=== PATIENT | female | born 1940 | race Caucasian/White ===

== ENCOUNTER 2016-10-03 05:57 | Inpatient (IN) | payer MEDICARE ==
[2016-10-03] MEDS ORDERED: ceFAZolin SODIUM 1 GM VIAL IV PRN (06:00)
[2016-10-03] MEDS ORDERED: ROPIVACAINE HCL/PF 100 MG, EPINEPHrine 0.2 MG, KETOROLAC TROMETHAMINE 30 MG in NORMAL S... IJ PRN (06:00)
[2016-10-03] MEDS ORDERED: TRANEXAMIC ACID 1,000 MG in NORMAL SALINE 100 ML IV PRN (06:00)
[2016-10-03] MEDS ORDERED: RINGERS SOLUTION,LACTATED 1,000 ML IV PRN (06:00)
[2016-10-03] MEDS ORDERED: MORPHINE SULFATE 15 MG TABLET.SA PO PRN (06:00)
--- OUTSIDE RECORDS SUMMARY | 2016-10-03 06:01 | XMS REPORT | Continuity of Care Document ---
:1940 Author Organization [employer] [place] [address] Care Team Providers Name Role Phone Unavailable Primary Care Provider Unavailable Source Comments This disclosure is being made pursuant to the [facility] program and maynot contain all information available regarding this patient.[employer] Active Allergies and Adverse Reactions Not on File Current Medications Be aware that medications may not be up to date as of this document. Alwaysverify current medications with the patient. Not on file Active Problems Not on file Social History Tobacco Use Types Packs/Day Years Used Date Never Assessed Plan of Care Health Maintenance Due Date Last Done Comments Retired-Pertussis Vaccine Adult 09/05/1958 Retired-Tetanus Vaccine Adult 09/05/1958 Colonoscopy 09/05/1989 Well Adult Visit 09/05/1989 Zoster Vaccine 60+ 1999 Bone Density 09/05/2004 Retired-Pneumococcal 23 Vaccine-65+ yo 09/05/2004 Retired-INFLUENZA VACCINE 12/28/2014 Results from Last 3 Months Not on file
--- OUTSIDE RECORDS SUMMARY | 2016-10-03 06:02 | XMS REPORT | Continuity of Care Document ---
:1940 Author Organization [facility] ([facility]) Address [address] [place] [address] Phone [phone] Care Team Providers Name Role Phone Michael Menjivar Primary Care Provider [phone] Source Comments This disclosure is being made pursuant to the Care Everywhere program, applicable federal and state laws, and may not contain all informaitonavailable regarding this patient.[facility] ([facility]) Active Allergies and Adverse Reactions No Known Allergies Current Medications Prescription Sig. Disp. Refills Start Date End Date Status amLODIPine 2.5 mg tablet 2.5 mg daily. 07/29/2014 Active citalopram 10 mg tablet 1 tablet daily. 07/29/2014 Active digoxin 250 mcg tablet 0.25 mg daily. 07/29/2014 Active furosemide 40 mg tablet 40 mg daily. 07/29/2014 Active gemfibrozil 600 mg tablet 600 mg 2 times 12/27/2010 Active daily. levothyroxine 150 mcg 150 mcg daily. 12/26/2011 Active tablet losartan 100 mg tablet 100 mg daily. 07/29/2014 Active melatonin 5 mg tablet 10 mg at bedtime. 07/29/2014 Active metoPROLol succinate 100 150 mg daily Take 07/29/2014 Active mg XL tablet one and a half tablet a day. omeprazole 40 mg enteric 40 mg 2 times 07/29/2014 Active coated capsule daily. oxyCODONE-acetaminophen as needed. 01/07/2013 Active 10-325 mg per tablet polyethylene glycol 3350 daily. 05/23/2011 Active (MIRALAX) 17 gram/dose powder warfarin 5 mg tablet 5 mg daily. 05/12/2014 Active alendronate 70 mg tablet 70 mg every week. 4 04/19/2015 Active levothyroxine 137 mcg 137 mcg daily. 05/17/2015 Active tablet pramipexole 0.125 mg as needed. 3 03/30/2015 Active tablet warfarin 1 mg tablet daily. 2 05/19/2015 Active Active Problems Problem Noted Date History of thyroid cancer 06/11/2015 HTN (hypertension) 06/10/2015 Low back pain 06/10/2015 Anxiety and depression 06/10/2015 Hypothyroid 06/10/2015 Constipation 06/10/2015 CAD (coronary artery disease) 06/10/2015 A-fib 06/10/2015 Social History Tobacco Use Types Packs/Day Years Used Date Never Smoker Smokeless Tobacco: Never Used Tobacco Cessation:Counseling Given: Yes Comments: Alcohol Use Drinks/Week oz/Week Comments No Last Filed Vital Signs Vital Sign Reading Time Taken Blood Pressure 148/81 06/10/2015 12:12 PM [employer] Pulse - - Temperature 36.5 C (97.7 F) 06/10/2015 12:12 PM [employer] Respiratory Rate - - Height 1.524 m (5') 06/10/2015 12:12 PM [employer] Weight 85.9 kg (189 lb 6 oz) 06/10/2015 12:12 PM [employer] Body Mass Index 36.98 06/10/2015 12:12 PM [employer] Oxygen Saturation - - Plan of Care Health Maintenance Due Date Last Done Comments Hepatitis B Vaccine (1 of 3 - Primary Series) 1940 Tdap Vaccine 09/05/1950 Lipid Disorder Screening 09/05/1957 Td Vaccine 09/05/1957 Mammogram 1979 Colonoscopy 09/05/1989 Zoster Vaccine 1999 Osteoporosis Screening (DXA Bone Density) 09/05/2004 Pneumococcal Vaccine (1 of 2 - PCV13) 09/05/2004 Influenza Vaccine: Seasonal (#1) 11/28/2015 Results from Last 3 Months Not on file
[2016-10-03 07:43] LABS: Prothrombin Time (Patient) 11.4 Seconds (9.4-11.4)
[2016-10-03 07:45] LABS: INR 1.1 INR (0.90-1.10)
[2016-10-03] MEDS ORDERED: RINGERS SOLUTION,LACTATED 1,000 ML IV ONE ×2 (07:45→09:10)
[2016-10-03] MEDS ORDERED: MAG HYDROX/ALUMINUM HYD/SIMETH 30 ML UDC PO PRN (10:03)
[2016-10-03] MEDS ORDERED: ACETAMINOPHEN 500 MG TABLET PO PRN (10:03)
[2016-10-03] MEDS ORDERED: ONDANSETRON HCL/PF 2 MG/ML VIAL IV PRN (10:03)
[2016-10-03] MEDS ORDERED: diphenhydrAMINE HCL 50 MG/ML VIAL IV PRN (10:03)
[2016-10-03] MEDS ORDERED: HYDROmorphone HCL 1 MG/ML DISP.SYRIN IV PRN (10:03)
[2016-10-03] MEDS ORDERED: PROMETHAZINE HCL 5 MG in DEXTROSE 5 % IN WATER 50 ML IV PRN ×2 (10:03)
[2016-10-03] MEDS ORDERED: MAGNESIUM HYDROXIDE 30 ML UDC PO PRN (10:03)
[2016-10-03] MEDS ORDERED: ZOLPIDEM TARTRATE 5 MG TABLET PO PRN (10:03)
[2016-10-03] MEDS ORDERED: LORazepam 1 MG TABLET PO PRN (10:05)
[2016-10-03] MEDS ORDERED: POLYETHYLENE GLYCOL 3350 119 GM BTL PO PRN (10:05)
--- NOTE | 2016-10-03 10:09 | OR ---
Operative Report - Dictated Report Narrative: Date: 10/03/2016 Preoperative diagnosis: Left Knee degenerative joint disease. Postoperative diagnosis: Left Knee degenerative joint disease. Procedure: Left Total knee arthroplasty. Surgeon: Haroon Henriquez M.D. Installation Coordinator: Gilson Davey PA-C, Wilfredo Carrizales PA-C Anesthesia: General With regional block and local periarticular joint injection. Complications: None Specimens: Bone for disposal. Estimated blood loss: Minimal. Tourniquet time: 85 Minutes at 325 millimeters of mercury. Retained implants: Depuy Attune size 6 narrow left lugged cemented posterior stabilized femoral component. Size 5 fixed-bearing cemented tibial platform. 6 by 5 millimeter posterior stabilized cross-linked tibial insert. 35 millimeter medialized patella button. Indications: Mrs. Renteria is a 76-year-old female who has had long-standing left knee pain. This patient was followed in my clinic for period of time with significant complaints of left knee pain consistent with arthritic changes. They had failed conservative measures including, but not limited to, activity modification, passage of time, medications, and other conservative measures. Patient wished to proceed with surgical treatment. The risks, benefits, and alternatives were discussed in clinic. The risks of , blood clots, bleeding, infection, nerve/tendon blood vessel/ injury, malposition of components, intraoperative fracture, postoperative limited range of motion, persistent pain, failure of components, and need for additional procedures. Patient wished to proceed consent was obtained after answering all questions. Procedure: After marking the correct extremity on the floor, the patient was taken to the operating room. A timeout was performed. IV antibiotics consisting of Ancef were administered prior to the procedure. A regional followed by general anesthetic was induced by anesthesia on the operative table with all bony prominences well-padded. Calzada catheter was placed, and a bump was placed under the operative side buttock. SCDs and ARA hose were utilized on the nonoperative leg. A well-padded tourniquet was applied to the operative thigh. The operative leg was then pre-scrubbed with alcohol prepped, and draped in a standard sterile fashion. After exsanguinating the extremity with an Esmarch bandage, the tourniquet was inflated. After marking out the anterior knee for standard incision centered over the patella, the skin was incised and dissected down to the joint retinaculum. The joint retinaculum was marked out as well as the horizontal axis of the patella, and a standard medial parapatellar arthrotomy was then made. The most proximal aspect of the quadriceps tendon and the patella tendon insertion were protected from release. A partial synovectomy was performed as well as a resection of the infrapatellar fat pad. The distal femoral fat pad proximal to the trochlea was also resected using cautery. The soft tissues were elevated off the medial aspect of the proximal tibia using a Gentile elevator ensuring that we did not transect the medial collateral ligament. Upon initial evaluation range of motion was approximately 0 degrees to 120 degrees of flexion. There were signs of advanced arthrosis in the medial, lateral, and patellofemoral joint spaces. There were large marginal osteophytes which were removed with a rongeur. The knee was hyperflexed and the patella was tucked laterally. Protecting the surrounding soft tissues with Homans, an entry drill was placed down the femoral canal using Whitesides line for guidance into the entry point. The intramedullary femoral alignment joselyn was utilized in order to cut the distal femur in 5 degrees of valgus resecting 10 millimeters of bone. Next the distal femur was sized to a size 6. A posterior referencing guide was utilized to place the distal femoral cutting block in 3 degrees of external rotation. This was pinned into place. The rotation was confirmed both visually and based on anatomic landmarks. The 4 in 1 cutting jig of the appropriate size was utilized in order to make all bony cuts. The angle wing was used to ensure no notching. Retractors were utilized in order to protect surrounding soft tissues. This cut did not result in any excessive notching. We then cut the box centered over the distal femur. This allowed for resection of the anterior and posterior cruciate ligaments. I then turned my attention to the preparation of the tibia. Using an extra medullary tibial alignment joselyn, 6 millimeters of bone was resected off the medial articular surface. This was made perpendicular to the mechanical axis of the joint with the alignment joselyn centered over the ankle mortise. The alignment joselyn was checked and was noted to be parallel to the mechanical axis, centered over the medial one third of the tibial tubercle, paralleling the anterior surface of the tibia. We then turned our attention to the remaining meniscus and soft tissues. These were removed while protecting the surrounding ligaments and soft tissues. The marginal osteophytes off the anterior, posterior, medial, lateral aspects of the femur and tibia were removed. The tibia was sized out to a size 5. Next the tibia was drilled and punched in an externally rotated position. Next the trial femur and a series of tibial inserts were utilized in order to allow for full extension and maximal flexion. It was found that a 5 millimeter insert gave the best range of motion and stability at multiple flexion points as well as at full extension there was less than 2 mm of gapping both medially and laterally. There is minimal anterior translation with the knee at 90 degrees of flexion and no signs of being able to dislocate the knee. The patella was then prepared. The initial thickness was 21 millimeters. This was reamed down to 11 millimeters parallel to the anterior surface of the patella. It was sized out to a size 35 medialized patella button. This was then drilled and trialed. Without any medial restraint the patella tracked appropriately and did not sublux or dislocate. At this point, it was felt these were the appropriate sized implants, and all trials were removed. The standard periarticular joint injection consisting of ropivacaine, Toradol, and epinephrine were injected into the periarticular joint tissues. The bony surfaces were thoroughly irrigated with a pulsatile- suction saline irrigation device. A bone plug from the prior resected anterior chamfer cut was placed into the drill hole at the distal femur. The bony surfaces were then dried in preparation for placement of the implants. The cement was vacuum mixed per the tile layer helper's instructions. The cement was placed on the dry bony surfaces and posterior aspect of the implants. The implants were impacted into place, removing all extruded cement. At this point anesthesia administered tranexamic acid per protocol intravenously. The knee was placed in extension with axial loading with the trial insert while the cement cured. Once the cement cured, all remaining extruded cement was removed. The knee was placed through a range of motion with the trial insert to ensure appropriate range of motion and stability. Final range of motion was approximately 0 to 120 degrees. The knee was again thoroughly irrigated with pulsatile saline lavage. The final polyethylene insert was then impacted into place ensuring no retained soft tissues. The remaining periarticular joint injection was injected. A medium Hemovac drain was placed exiting superior laterally. The knee was then placed over a triangle and the arthrotomy was closed with interrupted #1 Vicryl after thoroughly irrigating the joint. The deep and subcutaneous tissues were closed with interrupted oh and 3-0 Vicryl respectively. Skin was closed with a running subcutaneous 3-0 Monocryl and Prineo Dermabond dressing. 4 x 4's, ABD, Sof-Rol, and a full leg Low wrap were applied. All sponge, needle, blade, and instrument counts were correct prior to closing the wounds. Postoperative condition: The patient was awoken and transferred to the postanesthesia care unit in stable condition. Plan is to be admitted to the inpatient medical/surgical floor postoperatively for 24 hours of IV antibiotics , physical therapy, occupational therapy, and medical comanagement. Patient will be weightbearing as tolerated with range of motion as tolerated. DVT prophylaxis will be with SCDs, ARA hose, and pharmacological anticoagulation. Anticipated hospital stay is approximately 2-4 days.
[2016-10-03] MEDS: DEXTROSE 5%-LACTATED RINGERS 1,000 ML IV PRN ×2 (11:08→19:46)
[2016-10-03] MEDS: oxyCODONE HCL/ACETAMINOPHEN 1 TAB TABLET PO PRN ×3 (11:13→21:42)
[2016-10-03] MEDS: KETOROLAC TROMETHAMINE 15 MG/ML VIAL IV SCH ×2 (11:20→17:44)
[2016-10-03] MEDS: ceFAZolin SODIUM 1 GM in DEXTROSE 5 % IN WATER 100 ML IV SCH ×4 (13:35→20:18)
[2016-10-03] MEDS: GABAPENTIN 300 MG CAPSULE PO SCH ×2 (13:36→16:45)
[2016-10-03] MEDS: WARFARIN SODIUM 5 MG TABLET PO SCH (16:45)
[2016-10-03] MEDS: MORPHINE SULFATE 15 MG TABLET.SA PO SCH (20:17)
[2016-10-03] MEDS: CITALOPRAM HYDROBROMIDE 20 MG TABLET PO SCH (20:19)
[2016-10-03] MEDS: PANTOPRAZOLE SODIUM 40 MG TABLET.EC PO SCH (20:19)
[2016-10-03] MEDS: GEMFIBROZIL 600 MG TABLET PO SCH (20:19)
[2016-10-03] MEDS: CLONIDINE HCL 0.1 MG TABLET PO SCH (20:20)
[2016-10-03] MEDS: SENNOSIDES/DOCUSATE SODIUM 1 TAB TABLET PO SCH (20:20)
[2016-10-04] MEDS: KETOROLAC TROMETHAMINE 15 MG/ML VIAL IV SCH ×4 (00:06→17:06)
[2016-10-04] MEDS: ceFAZolin SODIUM 1 GM in DEXTROSE 5 % IN WATER 100 ML IV SCH ×2 (01:39)
[2016-10-04] MEDS: DEXTROSE 5%-LACTATED RINGERS 1,000 ML IV PRN (05:20)
[2016-10-04 05:44] LABS: Hematocrit 35.7 % (37.0-47.0); Hemoglobin 11.4 gm/dL (12.5-16.0); Mean Cell Volume 94.7 fl (78-100); Mean Corpuscular Hemoglobin 30.2 pg (27-31); Mean Corpuscular Hgb Conc 31.9 g/dl (32-36); Mean Platelet Volume 9.4 fl (6.0-9.5); Platelet Count 185 K/mm3 (150-450); Red Blood Count 3.77 M/mm3 (4.2-5.4); Red Cell Distribution Width 13.3 % (11.5-14.0); White Blood Count 7.5 K/mm3 (4.0-10.5)
[2016-10-04 06:05] LABS: Prothrombin Time (Patient) 11.1 Seconds (9.4-11.4)
[2016-10-04 06:07] LABS: INR 1.07 INR (0.90-1.10)
[2016-10-04 06:08] LABS: Anion Gap 7.5 mmol/L (6.8-13.8); BUN/Creatinine Ratio 12.8 (9.0-21.6); Calcium * 8.5 mg/dL (7.9-10.9); Carbon Dioxide 33.6 mmol/L (24-32.6); Estimated Creat Clear 37.8; Potassium 4.1 mmol/L (3.4-4.6)
[2016-10-04] MEDS: PANTOPRAZOLE SODIUM 40 MG TABLET.EC PO SCH ×2 (06:31→20:04)
[2016-10-04] MEDS: LEVOTHYROXINE SODIUM 150 MCG TABLET PO SCH (06:32)
[2016-10-04] MEDS: oxyCODONE HCL/ACETAMINOPHEN 1 TAB TABLET PO PRN ×2 (06:32→16:06)
--- NOTE | 2016-10-04 08:13 | PN ---
Subjective - Date and Time Seen Date: 10/04/16 Time: 08: Subjective Narrative: Subjective: Reports no concerns. She had some pain last night which improved this morning. Was able to get to the chair with therapy. Pain is well- controlled. Voiding without any complications. Tolerating by mouth intake. Denies any nausea or vomiting. Denies calf pain. Slept well. Physical exam: Alert and oriented to person, place and time Left lower Extremity: Palpable dorsalis pedis pulse. Sensation grossly intact to light touch. Dressings clean and dry. Able to flex and extend ankle and toes. No excessive drainage. Calf and thigh are soft and nontender. Assessment: Postop day 1 status post left total knee arthroplasty. Plan: Continue with physical and occupational therapy weightbearing as tolerated. Continue with anticoagulation. 24 hours postoperative prophylactic antibiotics. Pain control with goal to rely on oral medications. Continue bowel regimen. Will need 6 weeks with walker or assitive device to protect joint while ambulating during the recovery process. Discharge planning. Discontinue drain and Calzada catheter. Repeat labs in a.m. Objective - Vitals Vitals: Last Vital Signs Temp 36.6 C 10/04/16 06:54 Pulse 57 L 10/04/16 06:54 Resp 18 10/04/16 06:54 BP 145/69 10/04/16 06:54 Pulse Ox 98 10/04/16 06:54 - Abnormal Lab Findings Abnormal Lab Findings: Abnormal Lab Results 10/04/16 10/04/16 Range/Units 05:32 05:32 RBC 3.77 L (4.2-5.4) M/mm3 Hgb 11.4 L (12.5-16.0) gm/dL Hct 35.7 L (37.0-47.0) % MCHC 31.9 L (32-36) g/dl Carbon Dioxide 33.6 H (24-32.6) mmol/L Random Glucose 167 H (70-110) mg/dL Cauti Physician Documentation - Urinary Catheter Management Urethral (Calzada) Date of Insertion: 10/03/16 Time of Insertion: Date of Removal: 10/04/16 Time of Removal: 06:26 Assessment/Plan - Problems/Diagnosis (1) Status post total knee replacement, left Problem: Acute (2) Diabetes mellitus Problem: Chronic Qualifiers: Diabetes mellitus type: type 2 (3) Atrial fibrillation Problem: Chronic (4) CAD (coronary artery disease) Problem: Chronic (5) Hypertension Problem: Chronic (6) Hypothyroid Problem: Chronic (7) Hyperlipemia Problem: Chronic (8) GERD (gastroesophageal reflux disease) Problem: Chronic (9) Acute blood loss anemia Problem: Acute
[2016-10-04] MEDS: MULTIVITAMINS 1 CAP CAPSULE PO SCH (08:40)
[2016-10-04] MEDS: CYANOCOBALAMIN 1,000 MCG TABLET PO SCH (08:40)
[2016-10-04] MEDS: DIGOXIN 0.25 MG TABLET PO SCH (08:40)
[2016-10-04] MEDS: amLODIPine BESYLATE 5 MG TABLET PO SCH (08:40)
[2016-10-04] MEDS: GEMFIBROZIL 600 MG TABLET PO SCH ×2 (08:40→20:04)
[2016-10-04] MEDS: METOPROLOL SUCCINATE 100 MG TABLET.SA PO SCH (08:41)
[2016-10-04] MEDS: LOSARTAN POTASSIUM 50 MG TABLET PO SCH (08:41)
[2016-10-04] MEDS: MORPHINE SULFATE 15 MG TABLET.SA PO SCH ×2 (08:41→20:05)
[2016-10-04] MEDS: CITALOPRAM HYDROBROMIDE 20 MG TABLET PO SCH ×2 (08:42→20:04)
[2016-10-04] MEDS: GABAPENTIN 300 MG CAPSULE PO SCH ×3 (08:42→16:03)
[2016-10-04] MEDS: FUROSEMIDE 40 MG TABLET PO SCH (08:42)
[2016-10-04] MEDS: ENOXAPARIN SODIUM 40 MG/0.4 ML SYRG SC SCH (08:43)
[2016-10-04] MEDS: WARFARIN SODIUM 5 MG TABLET PO SCH (16:03)
[2016-10-04] MEDS: SENNOSIDES/DOCUSATE SODIUM 1 TAB TABLET PO SCH (20:04)
[2016-10-04] MEDS: CLONIDINE HCL 0.1 MG TABLET PO SCH (20:05)
[2016-10-05] MEDS: KETOROLAC TROMETHAMINE 15 MG/ML VIAL IV SCH ×2 (00:55→05:43)
[2016-10-05 05:48] LABS: Hematocrit 36.9 % (37.0-47.0); Hemoglobin 11.9 gm/dL (12.5-16.0); Mean Cell Volume 92.9 fl (78-100); Mean Corpuscular Hgb Conc 32.2 g/dl (32-36); Mean Platelet Volume 9.6 fl (6.0-9.5); Platelet Count 182 K/mm3 (150-450); Red Blood Count 3.97 M/mm3 (4.2-5.4); Red Cell Distribution Width 13.3 % (11.5-14.0); White Blood Count 8.2 K/mm3 (4.0-10.5)
[2016-10-05 06:05] LABS: Anion Gap 9.8 mmol/L (6.8-13.8); BUN/Creatinine Ratio 12.7 (9.0-21.6); Calcium * 8.7 mg/dL (7.9-10.9); Carbon Dioxide 34.5 mmol/L (24-32.6); Estimated Creat Clear 34.9; Potassium 3.3 mmol/L (3.4-4.6)
[2016-10-05 06:06] LABS: Prothrombin Time (Patient) 16.3 Seconds (9.4-11.4)
[2016-10-05 06:07] LABS: INR 1.57 INR (0.90-1.10)
[2016-10-05] MEDS: PANTOPRAZOLE SODIUM 40 MG TABLET.EC PO SCH (07:17)
[2016-10-05] MEDS: LEVOTHYROXINE SODIUM 150 MCG TABLET PO SCH (07:17)
[2016-10-05] MEDS ORDERED: POTASSIUM CHLORIDE 20 MEQ TABLET.SA PO ONE (07:47)
[2016-10-05] MEDS: METOPROLOL SUCCINATE 100 MG TABLET.SA PO SCH (08:44)
[2016-10-05] MEDS: MORPHINE SULFATE 15 MG TABLET.SA PO SCH (08:44)
[2016-10-05] MEDS: FUROSEMIDE 40 MG TABLET PO SCH (08:44)
[2016-10-05] MEDS: GABAPENTIN 300 MG CAPSULE PO SCH ×2 (08:44→14:36)
[2016-10-05] MEDS: LOSARTAN POTASSIUM 50 MG TABLET PO SCH (08:44)
[2016-10-05] MEDS: DIGOXIN 0.25 MG TABLET PO SCH (08:44)
[2016-10-05] MEDS: CITALOPRAM HYDROBROMIDE 20 MG TABLET PO SCH (08:44)
[2016-10-05] MEDS: amLODIPine BESYLATE 5 MG TABLET PO SCH (08:45)
[2016-10-05] MEDS: CYANOCOBALAMIN 1,000 MCG TABLET PO SCH (08:45)
[2016-10-05] MEDS: MULTIVITAMINS 1 CAP CAPSULE PO SCH (08:45)
[2016-10-05] MEDS: ENOXAPARIN SODIUM 40 MG/0.4 ML SYRG SC SCH (08:45)
[2016-10-05] MEDS: GEMFIBROZIL 600 MG TABLET PO SCH (08:45)
--- NOTE | 2016-10-05 11:39 | DS ---
(1) Acute blood loss anemia Problem: Acute (2) Status post total knee replacement, left Problem: Acute (3) Atrial fibrillation Problem: Chronic (4) CAD (coronary artery disease) Problem: Chronic (5) Diabetes mellitus Problem: Chronic Qualifiers: Diabetes mellitus type: type 2 (6) GERD (gastroesophageal reflux disease) Problem: Chronic (7) Hyperlipemia Problem: Chronic (8) Hypertension Problem: Chronic Description of Stay: Mrs. Renteria was admitted to the floor after undergoing right total knee arthroplasty. Tolerated this well. Was admitted to the floor postoperatively for 24 hours of IV antibiotics, pain control, medical comanagement, and occupational and physical therapy. OT and PT were consulted to assist with activities of daily living and ambulation. Was made weightbearing as tolerated with range of motion as tolerated. Pain was initially controlled with IV regimen. This was transitioned to oral once tolerating a by mouth intake. Was resumed on home diet and medications. Had a Calzada catheter inserted and the operating room which was discontinued on postoperative day 1. A drain was placed intraoperatively into the knee which was discontinued on postoperative day 1. Lovenox SCD and ARA hose were utilized for DVT prophylaxis. Vital signs remained stable to the hospital course. Serial labs were obtained which showed a final hemoglobin of 11.9 grams. BMP was reviewed and was stable. Physical examination throughout the hospital course showed an extremity that had sensation that was intact to light touch, palpable pulses, a benign wound, motor intact to the toes, ankle, and knee. Knee range of motion was approximately 5 next 70 degrees to [] degrees. Once an oral pain regimen was tolerated and physical therapy goals were met, it was felt that they were stable for discharge to home. Instructions: Continue with weightbearing as tolerated and range of motion as tolerated. It is OK to shower on the wound if it is not draining. If you note any drainage or for comfort you can cover with dry gauze and tape. Change every 2-3 days as needed. Continue with physical therapy. Resume home diet. Report any fever over 101.5 Fahrenheit, uncontrolled pain, increased drainage, foul odor of drainage, new or increased calf pain or shortness of breath, or any other significant complaints. A 325mg dialy aspirin will be started after finishing anticoagulation if not allergic. Continue with ARA hose on the operative extremity until instructed otherwise. No driving until instructed otherwise. Follow up in approximately 10-14 days. Procedures Performed: see notes below List Procedures: Right total knee arthroplasty Discharge Disposition: Home self care Disposition: Home self-care Condition: Good Discharge Activity: Activity as tolerated, Weight bearing Discharge Diet: Consistent carbs Long Term Therapy: Physicial Therapy Referrals: Michael Menjivar MD [Primary Care Provider] - Additional Patient Instructions (free text): Outpatient Physical Therapy at [facility] in [place] on SaturdayOctober 08 at 11: 00 am. Follow up with Dr. Henriquez on October 18 at 9:45 am. Prescriptions (Any new or edited meds): Morphine Sulfate [Ms Contin] 15 mg PO Q12H #20 tablet.sa Sennosides/Docusate Sodium [Senokot-S] 2 tab PO HS #30 tablet oxyCODONE HCL/ACETAMINOPHEN [Percocet 5 MG/325 MG] 2 tab PO Q4H PRN #90 tablet PRN Reason: Moderate Pain Complete Home Medications List: Complete Home Medication List: Alendronate Sodium [Fosamax] 70 mg PO Q7D 06/26/12 Gemfibrozil [Lopid] 600 mg PO BID 06/26/12 Losartan Potassium 100 mg PO DAILY 06/26/12 Omeprazole 40 mg PO BID 06/26/12 Oxycodone HCl/Acetaminophen [Endocet 10-325 mg Tablet] 1 each PO Q4H PRN Polyethylene Glycol 3350 [Miralax] 17 gm PO DAILY PRN 06/26/12 Amlodipine Besylate [Norvasc] 2.5 mg PO DAILY 08/30/16 Clonidine HCl [Catapres] 0.1 mg PO HS 08/30/16 Digoxin [Lanoxin] 250 mcg PO DAILY 08/30/16 Furosemide [Lasix] 40 mg PO DAILY 08/30/16 Gabapentin 300 mg PO TID 08/30/16 Metoprolol Succinate [Toprol Xl] 100 mg PO DAILY 08/30/16 Citalopram Hydrobromide [Celexa] 20 mg PO BID 09/07/16 Cyanocobalamin [Vitamin B-12] 1,000 mcg PO DAILY 09/07/16 LORazepam [Ativan] 1 mg PO Q4H PRN 09/07/16 Levothyroxine Sodium [Synthroid] 150 mcg PO DAILY 09/07/16 Multivitamins [Multivitamin Celestine] 1 cap PO DAILY 09/07/16 Warfarin Sodium 2 mg PO MO 10/03/16 Warfarin Sodium [Coumadin] 4 mg PO [id number] 10/03/16 Morphine Sulfate [Ms Contin] 15 mg PO Q12H #20 tablet.sa 10/05/16 Sennosides/Docusate Sodium [Senokot-S] 2 tab PO HS #30 tablet 10/05/16 oxyCODONE HCL/ACETAMINOPHEN [Percocet 5 MG/325 MG] 2 tab PO Q4H PRN #90 tablet 10/05/16
[2016-10-05 14:30] VITALS: BP 181/88
[2016-10-05] MEDS: oxyCODONE HCL/ACETAMINOPHEN 1 TAB TABLET PO PRN (14:42)
[2016-10-07] MEDS ORDERED: ALENDRONATE SODIUM 70 MG TABLET PO SCH (06:00)
== END 2016-10-05 16:45 | disposition home or self-care (01) | DRG 470 ==
LOC: MS 05:57
PROVIDERS: ADMIT Orthopaedic Surgery; ATTEND Orthopaedic Surgery
PROC: 0SRD0J9 Replacement of Left Knee Joint with Synthetic Substitute, Cemented, Open Approach (ICD-10-PCS; principal; 2016-10-03 08:00)
DX: M17.9 Osteoarthritis of knee, unspecified (principal); D62 Acute posthemorrhagic anemia; I10 Essential (primary) hypertension; E78.5 Hyperlipidemia, unspecified; E11.9 Type 2 diabetes mellitus without complications; I48.2 Chronic atrial fibrillation; E03.9 Hypothyroidism, unspecified; I25.10 Atherosclerotic heart disease of native coronary artery without angina pectoris; Z79.01 Long term (current) use of anticoagulants

== ENCOUNTER 2018-08-17 05:49 | Observation (INO) ==
[2018-08-17] MEDS ORDERED: ALBUTEROL SULFATE/IPRATROPIUM 3 ML NEBU IH ONE (06:28)
[2018-08-17 06:29] LABS: Hematocrit 38.1 % (37.0-47.0); Hemoglobin 12.1 gm/dL (12.5-16.0); Mean Cell Volume 93.2 fl (78-100); Mean Corpuscular Hemoglobin 29.6 pg (27-31); Mean Corpuscular Hgb Conc 31.8 g/dl (32-36); Neutrophil % 82.3 % (42-75.0); Platelet Count 264 K/mm3 (150-450); Red Blood Count 4.09 M/mm3 (4.2-5.4); Red Cell Distribution Width 14.4 % (11.5-14.0); White Blood Count 9.7 K/mm3 (4.0-10.5)
[2018-08-17] MEDS ORDERED: MORPHINE SULFATE 4 MG/ML SYRG IV ONE ×2 (06:29→08:00)
--- NOTE | 2018-08-17 06:40 | ERNOTE ---
Abdominal HPI - Narrative Date of Service: 08/17/18 - General Chief Complaint: Abdominal Pain Time Seen by Provider: 08/17/18 06:23 Source: patient Exam Limitations: no limitations - Immun/Allergies/Home Medications Immunizatons: IMMUNIZATION HX Immunizations Up to Date Yes History of Influenza Vaccine Yes Allergies/Adverse Reactions: Allergies No Known Allergies Allergy (Verified 08/17/18 05:56) Home Medications: HOME MEDICATIONS Polyethylene Glycol 3350 [Miralax] 17 gm PO DAILY PRN 06/26/12 [Last Taken Unknown] cholecalciferol (vitamin D3) 5,000 unit capsule 5,000 unit PO DAILY 11/28/17 [Last Taken Unknown] blood-glucose meter and wrist BP monitor kit See Dose Instructions .ROUTE .MEDSUPPLY #1 ea 12/26/17 [Last Taken Unknown] lancets 30 gauge See Dose Instructions .ROUTE .MEDSUPPLY #25 ea 12/26/17 [Last Taken Unknown] blood pressure test kit-large cuff See Dose Instructions .ROUTE .MEDSUPPLY #1 ea 01/09/18 [Last Taken Unknown] digoxin 250 mcg tablet 125 mcg PO DAILY tab 03/19/18 [Last Taken 05/23/18 08:00] blood sugar diagnostic strips See Dose Instructions .ROUTE .MEDSUPPLY #100 ea 03/25/18 [Last Taken Unknown] hydrocodone 5 mg-acetaminophen 325 mg tablet See Rx Instructions PO .COMPLEX PRN #40 tab 06/05/18 [Last Taken Unknown] hydroxyzine HCl 25 mg tablet 25 mg PO BID PRN #60 tab 06/16/18 [Last Taken Unknown] metformin 1,000 mg tablet 1,000 mg PO BID #60 tab 07/08/18 [Last Taken Unknown] amlodipine 2.5 mg tablet 2.5 mg PO DAILY #90 tab 07/09/18 [Last Taken Unknown] atorvastatin 10 mg tablet 10 mg PO DAILY #60 tab 07/09/18 [Last Taken Unknown] carvedilol 12.5 mg tablet 12.5 mg PO BID #180 tab 07/09/18 [Last Taken Unknown] duloxetine 60 mg capsule,delayed release 60 mg PO DAILY #90 cap 07/09/18 [Last Taken Unknown] furosemide 40 mg tablet 40 mg PO DAILY #90 tab 07/09/18 [Last Taken Unknown] losartan 50 mg tablet 50 mg PO DAILY #90 tab 07/09/18 [Last Taken Unknown] pramipexole 0.25 mg tablet 0.25 mg PO HS #90 tab 07/09/18 [Last Taken Unknown] warfarin 4 mg tablet 4 mg PO .COMPLEX #30 tab 07/09/18 [Last Taken Unknown] warfarin 6 mg tablet 6 mg PO 6XW #90 tab 07/09/18 [Last Taken Unknown] levothyroxine 150 mcg tablet 150 mcg PO DAILY tab 07/16/18 [Last Taken Unknown] gabapentin 300 mg capsule See Rx Instructions .ROUTE .COMPLEX #90 capsule 08/11/18 [Last Taken Unknown] - History of Present Illness Narrative: Patient presents to the ED for severe right low abdominal pain. She relates that she thinks this is from coughing. She has been having a severe cough for a week now with some SOB. Bringing up yellow/green sputum. She developed severe right sided abdominal pain yesterday that has been persistent. Pain worse with cough/movement and palpation. No vomiting. No fever. Has not seen anyone else for this.. No other chest pain. Timing: constant Quality: severe Activities at Onset: other - cough' Modifying Factors - (Improves): Present: rest Modifying Factors - (Worsens): Present: other - cough/movement/palpation Associated Symptoms: Absent: headache, diarrhea-gross blood, diarrhea-mucous, fever/chills, vomiting Prior Abdominal Problems: Present: none Prior Treatment: Absent: recently seen, currently on antibiotics Review of Systems - Review of Systems Constitutional: Absent: fever EYE: Present: no symptoms reported ENT: Absent: sore throat Respiratory: Present: shortness of breath, cough Cardiology: Absent: chest pain Gastrointestinal/Abdominal: Present: abdominal pain Genitourinary: Absent: dysuria Musculoskeletal: Present: no symptoms reported Skin: Absent: rash Neurological: Absent: weakness All Other Systems: All systems neg except as marked Medical History (Updated 06/19/18 @ 15:04 by Haroon Henriquez MD) Anemia, iron deficiency Onset Date: Unknown Atrial fibrillation Onset Date: Unknown Diabetes Onset Date: Unknown Diverticulosis Onset Date: Unknown Hyperlipidemia Onset Date: Unknown Hypertension Onset Date: Unknown Malignant neoplasm of thyroid gland Onset Date: Unknown Obesity Onset Date: Unknown Osteoarthritis Onset Date: Unknown Osteoporosis Onset Date: Unknown Pericardial effusion Onset Date: Unknown Pleural effusion Onset Date: Unknown Reactive airway disease Onset Date: Unknown Surgical History: Surgical History (Updated 06/05/18 @ 11:16 by Christine Pandey, JAKY) H/O arthroscopy of left knee Onset Date: ~10/12/10 Dr. Gan H/O colonoscopy Onset Date: ~2009 ' tubular adenoma w/high grade dysplasia. ' hyperplastic polyp. ' [id number]-[id number] adenoma x2. 2001, 2003, 12/06/2009 History of arthroscopy of right knee Onset Date: ~10/18/06 Dr. Riggins History of cardiac cath Onset Date: ~11/28/17 History of carpal tunnel release Onset Date: ~1990 bilateral History of cataract Onset Date: ~11/28/1703/2014, 06/07/2013 History of cholecystectomy Onset Date: ~2003 History of knee replacement procedure of left knee Onset Date: ~10/03/16 Dr. Henriquez History of knee replacement procedure of right knee Onset Date: ~02/12/11 Dr. Gan History of left hip replacement Onset Date: ~06/05/05 Dr. Riggins History of skin graft Onset Date: ~11/28/17 right hand History of thyroidectomy Onset Date: ~11/28/17 S/P DOT-BSO Onset Date: ~11/28/17 Benign Tumor S/P epidural steroid injection Onset Date: ~10/07/08 L3-4 S/P trigger finger release Onset Date: 12/28/05 Gilson-left thumb Status post pericardiocentesis Onset Date: ~01/16/09 Status post tonsillectomy Onset Date: ~11/28/17 history of ear implants Onset Date: ~07/16/09 Nitinol Fluoroplastic - middle ear implant Left Thumb resection suspension arthroplasty of the carpo-me Onset Date: ~05/23/18 Dr Henriquez Family History: Family History (Updated 11/28/17 @ 07:00 by Peyman Joseph MA) Father , 70's Emphysema lung Mother , 56 Hypertension Diabetes Heart disease Brother , 70's Heart disease Brother CAD (coronary artery disease) Social History: Preferred Language Togolese Do you have any samaritan or No cultural preference? Smoking Status Never smoker Have you smoked in the past 12 No months Do you dip or chew tobacco No Abuse History No History of abuse Psych History Hx of Depression Alcohol Use none Drug Use none (Last Updated 08/06/18 @ 11:33 by Zoe Fall MD) No Social History Section defined Physical Exam - Physical Exam General Appearance: Present: alert, no apparent distress Head Exam: Present: normal inspection, no evidence of injury Eye Exam: Normal inspection: left - subconjuntival hemorrhage from coughing, PERRL: bilateral Ears, Nose, Throat: Present: normal ENT inspection Neck: Present: normal inspection Respiratory: Present: no respiratory distress, no accessory muscle use, other - few faint scattered wheezes, harsh cough Cardiovascular/Chest: Present: tachycardia, irregularly irregular Gastrointestinal/Abdominal: Present: normal bowel sounds, soft, other - Right mid and low abdominal tenderness. No clear incarcerated or strangulated hernia, no peritoneal signs Back Exam: Absent: CVA tenderness (R), CVA tenderness (L) Extremity Exam: Present: non-tender Neurological Exam: Present: alert, no motor/sensory deficits Skin Exam: Present: normal color, warm/dry Progress - Results and Orders Patient's Lab Results:: I have reviewed the patient's lab results. - Vital Signs Patient's Vital Signs:: I have reviewed the patient's vital signs. Vital Signs: Vital Signs 08/17/18 05:57 Temperature 37.0 C Pulse Rate 101 H Respiratory Rate 20 Blood Pressure 184/109 H O2 Sat by Pulse Oximetry 93 - X-Ray X-Ray #1 X-Ray: chest Interpretation: Interp. by me X-ray Comments: I reviewed official radiology report - CT/Ultrasound CT/Ultrasound Narrative: I reviewed official CT report ABD/Pelvis per radiology - Progress/Reassessment Chief Complaint: Abdominal Pain Progress Note-Subjective: 08/17/18 08:59 Patient given duoneb and solumedrol as there were a few wheezed on exam. Initially IV ABx given but no pneumonia on CXR as expected. Supratherapeutic INR with right rectus sheath hematoma, FFP and Vit K given. D/W Dr Hector who will admit. Patient agreeable. Departure Clinical Impression: Abdominal pain, Rectus sheath hematoma, Supratherapeutic INR, Cough, Bronchitis - Departure Disposition: Still a patient Condition: Fair Referrals: Ashley Blanchard DO [Primary Care Provider] -
[2018-08-17 06:45] LABS: Albumin * 2.9 gm/dl (3.4-5.0); Anion Gap 10.6 mmol/L (6.8-13.8); BUN/Creatinine Ratio 13.3 (9.0-21.6); Bilirubin, Total 0.7 mg/dL (0.0-1.1); Ca. Corrected For Albumin 8.8 mg/dL (8.4-10.2); Calcium * 8.2 mg/dL (7.9-10.9); Potassium 3.6 mmol/L (3.4-4.6); Total Protein 6.6 gm/dL (6.2-8.2)
[2018-08-17 06:50] LABS: Prothrombin Time (Patient) 58.4 Seconds (9.1-10.7)
[2018-08-17 06:52] LABS: INR 6.33 INR (0.92-1.08)
[2018-08-17] MEDS ORDERED: DIATRIZOATE MEGLUMINE, SODIUM 30 ML BTL PO ONE (07:24)
[2018-08-17 07:48] LABS: Urine Bilirubin Negative (NEGATIVE); Urine Ketone Negative (NEGATIVE); Urine Nitrite Negative (NEGATIVE); Urine Protein 100 mg/dL (NEGATIVE); Urine Specific Gravity 1.015 SP.GR. (1.005-1.010); Urine Urobilinogen 4 EU/dl (NORMAL)
[2018-08-17 07:59] LABS: Urine Appearance Clear (CLEAR); Urine Bacteria 1+; Urine Blood 5 /ul (NEGATIVE); Urine Color Yellow; Urine Hyaline Cast 0-5 /LPF; Urine RBC None Seen /hpf (0-5); Urine WBC 0-5 /hpf (0-5)
[2018-08-17] MEDS ORDERED: cefTRIAXone SODIUM 1,000 MG/100 ML BAG IV ONE (08:00)
[2018-08-17] MEDS ORDERED: METHYLPREDNISOLONE SOD SUCC/PF 40 MG/ML VIAL IV ONE (08:01)
[2018-08-17] MEDS ORDERED: PHYTONADIONE (VIT K1) 10 MG/ML AMPUL IM ONE (08:50)
--- NOTE | 2018-08-17 11:01 | HP ---
Chief Complaint - Chief Complaint Date of Service: 08/17/18 Time of Service: 10:50 Chief Complaint: abdominal pain History of Present Illness: Darlene Renteria, is a 77-year-old white female, patient of Dr. Blanchard, with past medical history of chronic atrial fibrillation, hypertension, hyperlipidemia, hypothyroidism, who was admitted on 08/17/2018 because of severe right lower abdominal pain. One week CATTLE TESTER, the patient started having coughing productive of yellowish phlegm. This was associated with mild shortness of breath but she denied any fever or chills. Yesterday the patient developed acute severe right sided abdominal pain which has persisted until today. She denied any chest pain, palpitation, nausea, vomiting, diarrhea, constipation. The pain is increased with coughing and body movement. She was brought to our emergency room where she was found to have a supratherapeutic INR of 6.2 up frpm 2.07 in 07/23/18. Her hemoglobin also was down to 12.1 from 14.6 in 08/2017. Her chest x-ray showed no acute cardiopulmonary findings however her CT scan of the abdomen showed a rectus abdominis hematoma. She was also noted to have a left subconjunctival hemorrhage which she did not even know. She was then admitted for reversal of her supratherapeutic INR and pain control. Medical History (Updated 08/17/18 @ 11:01 by Micheal Hector MD) Anemia, iron deficiency Onset Date: Unknown Atrial fibrillation Onset Date: Unknown Diabetes Onset Date: Unknown Diverticulosis Onset Date: Unknown Hyperlipidemia Onset Date: Unknown Hypertension Onset Date: Unknown Malignant neoplasm of thyroid gland Onset Date: Unknown Obesity Onset Date: Unknown Osteoarthritis Onset Date: Unknown Osteoporosis Onset Date: Unknown Pericardial effusion Onset Date: Unknown Pleural effusion Onset Date: Unknown Reactive airway disease Onset Date: Unknown Surgical History: Surgical History (Updated 08/17/18 @ 11:01 by Micheal Hector MD) H/O arthroscopy of left knee Onset Date: ~10/12/10 Dr. Gan H/O colonoscopy Onset Date: ~2009 '02 tubular adenoma w/high grade dysplasia. '04 hyperplastic polyp. '10 LAL-[id number]-gngrubm adenoma x2. 2001, 2003, 12/06/2009 History of arthroscopy of right knee Onset Date: ~10/18/06 Dr. Riggins History of cardiac cath Onset Date: ~11/28/17 History of carpal tunnel release Onset Date: ~1990 bilateral History of cataract Onset Date: ~11/28/1703/2014, 06/07/2013 History of cholecystectomy Onset Date: ~2003 History of knee replacement procedure of left knee Onset Date: ~10/03/16 Dr. Henriquez History of knee replacement procedure of right knee Onset Date: ~02/12/11 Dr. Gan History of left hip replacement Onset Date: ~06/05/05 Dr. Riggins History of skin graft Onset Date: ~11/28/17 right hand History of thyroidectomy Onset Date: ~11/28/17 S/P DOT-BSO Onset Date: ~11/28/17 Benign Tumor S/P epidural steroid injection Onset Date: ~10/07/08 L3-4 S/P trigger finger release Onset Date: 12/28/05 Gilson-left thumb Status post pericardiocentesis Onset Date: ~01/16/09 Status post tonsillectomy Onset Date: ~11/28/17 history of ear implants Onset Date: ~07/16/09 Nitinol Fluoroplastic - middle ear implant Left Thumb resection suspension arthroplasty of the carpo-me Onset Date: ~05/23/18 Dr Henriquez Family History: Family History (Updated 11/28/17 @ 07:00 by Peyman Joseph MA) Father , 70's Emphysema lung Mother , 56 Hypertension Diabetes Heart disease Brother , 70's Heart disease Brother CAD (coronary artery disease) Social History: Patient Lives/Resources Home Utilized Preferred Language [place] Do you have any gnosticism or No cultural preference? Smoking Status Never smoker Have you smoked in the past 12 No months Do you dip or chew tobacco No Abuse History No History of abuse Psych History Hx of Depression Alcohol Use none Drug Use none (Last Updated 08/06/18 @ 11:33 by Zoe Fall MD) No Social History Section defined Review Of Systems (GEN) - Review of Systems Generalized/Overall Review: Absent: Chills, Fever EENTM: Absent: Blurred Vision Respiratory: Present: Cough, Shortness of Breath. Absent: Orthopnea, Wheezing Cardiac: Absent: Chest Pain, Edema, Palpitations Abdominal: Present: Abdominal Pain. Absent: Nausea, Vomiting, Hematemesis, Constipation, Diarrhea, Melena Genitourinary: Absent: Urgency, Frequency Musculoskeletal: Present: Joint Pain Neurological: Absent: Headache Skin: Absent: Lesions, Rash Endocrine: Absent: Intolerance to Cold, Intolerance to Heat Misc: All systems neg except as marked Immunizations: IMMUNIZATION HX Immunizations Up to Date Yes History of Influenza Vaccine Yes Allergies/Adverse Reactions: Allergies Allergy/AdvReac Type Severity Reaction Status Date / Time No Known Allergies Allergy Verified 08/17/18 10:00 Home Medications: HOME MEDICATIONS Polyethylene Glycol 3350 [Miralax] 17 gm PO DAILY PRN 06/26/12 [Last Taken Unknown] blood-glucose meter and wrist BP monitor kit See Dose Instructions .ROUTE .MEDSUPPLY #1 ea 12/26/17 [Last Taken Unknown] lancets 30 gauge See Dose Instructions .ROUTE .MEDSUPPLY #25 ea 12/26/17 [Last Taken Unknown] blood pressure test kit-large cuff See Dose Instructions .ROUTE .MEDSUPPLY #1 ea 01/09/18 [Last Taken Unknown] blood sugar diagnostic strips See Dose Instructions .ROUTE .MEDSUPPLY #100 ea 03/25/18 [Last Taken Unknown] hydrocodone 5 mg-acetaminophen 325 mg tablet See Rx Instructions PO .COMPLEX PRN #40 tab 06/05/18 [Last Taken Unknown] hydroxyzine HCl 25 mg tablet 25 mg PO BID PRN #60 tab 06/16/18 [Last Taken Unknown] metformin 1,000 mg tablet 1,000 mg PO BID #60 tab 07/08/18 [Last Taken Unknown] amlodipine 2.5 mg tablet 2.5 mg PO DAILY #90 tab 07/09/18 [Last Taken Unknown] atorvastatin 10 mg tablet 10 mg PO DAILY #60 tab 07/09/18 [Last Taken Unknown] carvedilol 12.5 mg tablet 12.5 mg PO BID #180 tab 07/09/18 [Last Taken Unknown] duloxetine 60 mg capsule,delayed release 60 mg PO DAILY #90 cap 07/09/18 [Last Taken Unknown] furosemide 40 mg tablet 40 mg PO DAILY #90 tab 07/09/18 [Last Taken Unknown] losartan 50 mg tablet 50 mg PO DAILY #90 tab 07/09/18 [Last Taken Unknown] pramipexole 0.25 mg tablet 0.25 mg PO HS #90 tab 07/09/18 [Last Taken Unknown] warfarin 4 mg tablet 4 mg PO .COMPLEX #30 tab 07/09/18 [Last Taken Unknown] warfarin 6 mg tablet 6 mg PO 6XW #90 tab 07/09/18 [Last Taken Unknown] levothyroxine 150 mcg tablet 150 mcg PO DAILY tab 07/16/18 [Last Taken Unknown] Digoxin [Lanoxin] 0.25 mg PO DAILY 08/17/18 [Last Taken Unknown] Gabapentin 300 mg PO TID 08/17/18 [Last Taken Unknown] Gemfibrozil 600 mg PO BIDWM 08/17/18 [Last Taken Unknown] Ramelteon [Rozerem] 8 mg PO HS PRN 08/17/18 [Last Taken Unknown] Sertraline HCl 25 mg PO DAILY 08/17/18 [Last Taken Unknown] Exam - Exam Vital Signs: Vital Signs - Last Taken Temp 36.5 C 08/17/18 09:50 Pulse 106 H 08/17/18 09:50 Resp 20 08/17/18 09:50 BP 132/80 08/17/18 09:50 Pulse Ox 95 08/17/18 09:50 Constitutional: Present: Alert, Oriented x3, Cooperative ENT Exam: Present: hearing grossly normal Eye Exam: bilateral eye: normal inspection, PERRL, EOMI Neck: Present: supple Respiratory: Present: normal breath sounds, No rales, No wheezing Cardiovascular/Chest: Present: no JVD, no murmur, irregularly irregular Abdomen: Present: Normal bowel sounds, obese, tender, firm Extremity: Present: no pedal edema, no calf tenderness Diagnostic Studies: Abnormal Lab Results 08/17/18 08/17/18 08/17/18 Range/Units 06:20 06:25 06:25 RBC 4.09 L (4.2-5.4) M/mm3 Hgb 12.1 L (12.5-16.0) gm/dL MCHC 31.8 L (32-36) g/dl RDW 14.4 H (11.5-14.0) % Neutrophils % 82.3 H (42-75.0) % Lymphocytes % 6.2 L (20-51) % Neutrophils # 8.0 H (1.3-6.0) K/mm3 Lymphocytes # 0.60 L (1.5-3.5) k/mm3 PT 58.4 H (9.1-10.7) Seconds INR (Anticoag Therapy) 6.33 H* (0.92-1.08) INR Sodium 143 H (132-142) mmol/L Plasma Sodium 144 H (130-142) mmol/L Carbon Dioxide 33.0 H (24-32.6) mmol/L Random Glucose 150 H (70-110) mg/dL ALT 12 L (19-67) U/L Albumin 2.9 L (3.4-5.0) gm/dl Amylase 18 L (25-115) U/L Lipase 69 L (73-393) U/L Urine Protein (NEGATIVE) mg/dL Urine Blood (NEGATIVE) /ul Prot Sulfosalicylic Acd (0) mg/dL Urine Urobilinogen (NORMAL) EU/dl Ur Leukocyte Esterase (NEGATIVE) /ul Ur Epithelial Cells (0-5) /hpf Urine Bacteria (NONE) Hyaline Casts (NONE) /LPF 08/17/18 Range/Units 07:35 RBC (4.2-5.4) M/mm3 Hgb (12.5-16.0) gm/dL MCHC (32-36) g/dl RDW (11.5-14.0) % Neutrophils % (42-75.0) % Lymphocytes % (20-51) % Neutrophils # (1.3-6.0) K/mm3 Lymphocytes # (1.5-3.5) k/mm3 PT (9.1-10.7) Seconds INR (Anticoag Therapy) (0.92-1.08) INR Sodium (132-142) mmol/L Plasma Sodium (130-142) mmol/L Carbon Dioxide (24-32.6) mmol/L Random Glucose (70-110) mg/dL ALT (19-67) U/L Albumin (3.4-5.0) gm/dl Amylase (25-115) U/L Lipase (73-393) U/L Urine Protein 100 H (NEGATIVE) mg/dL Urine Blood 5 H (NEGATIVE) /ul Prot Sulfosalicylic Acd 2+ H (0) mg/dL Urine Urobilinogen 4 H (NORMAL) EU/dl Ur Leukocyte Esterase 75 H (NEGATIVE) /ul Ur Epithelial Cells 5-10 H (0-5) /hpf Urine Bacteria 1+ H (NONE) Hyaline Casts 0-5 H (NONE) /LPF Laboratory Results WBC 9.7 K/mm3 (4.0-10.5) 08/17/18 06:25 RBC 4.09 M/mm3 (4.2-5.4) L 08/17/18 06:25 Hgb 12.1 gm/dL (12.5-16.0) L 08/17/18 06:25 Hct 38.1 % (37.0-47.0) 08/17/18 06:25 MCV 93.2 fl (78-100) 08/17/18 06:25 MCH 29.6 pg (27-31) 08/17/18 06:25 MCHC 31.8 g/dl (32-36) L 08/17/18 06:25 RDW 14.4 % (11.5-14.0) H 08/17/18 06:25 Plt Count 264 K/mm3 (150-450) 08/17/18 06:25 MPV 9.0 fl (8-12.5) 08/17/18 06:25 Immature Gran % (Auto) 0.30 % (0.001-0.429) 08/17/18 06:25 Immature Gran # (Auto) 0.03 K/mm3 (0.000-0.0310) 08/17/18 06:25 82.3 % (42-75.0) H 08/17/18 06:25 6.2 % (20-51) L 08/17/18 06:25 7.8 % (0.0-9) 08/17/18 06:25 2.7 % (0.0-3.0) 08/17/18 06:25 0.7 % (0.0-1.0) 08/17/18 06:25 Nucleated RBC % 0.0 k/mm3 (0-1) 08/17/18 06:25 8.0 K/mm3 (1.3-6.0) H 08/17/18 06:25 0.60 k/mm3 (1.5-3.5) L 08/17/18 06:25 0.8 k/mm3 (0.0-1.0) 08/17/18 06:25 0.3 k/mm3 (0.0-0.7) 08/17/18 06:25 Absolute Basophils 0.1 k/mm3 (0.0-0.1) 08/17/18 06:25 PT 58.4 Seconds (9.1-10.7) H 08/17/18 06:20 INR (Anticoag Therapy) 6.33 INR (0.92-1.08) H* 08/17/18 06:20 Sodium 143 mmol/L (132-142) H 08/17/18 06:25 144 mmol/L (130-142) H 08/17/18 06:25 Potassium 3.6 mmol/L (3.4-4.6) 08/17/18 06:25 Chloride 103 mmol/L (97-106) 08/17/18 06:25 Carbon Dioxide 33.0 mmol/L (24-32.6) H 08/17/18 06:25 10.6 mmol/L (6.8-13.8) 08/17/18 06:25 BUN 11 mg/dL (3-23) 08/17/18 06:25 0.83 mg/dL (0.4-1.4) 08/17/18 06:25 Est GFR (Non-Af Amer) 71 mL/min (60-130) 08/17/18 06:25 13.3 (9.0-21.6) 08/17/18 06:25 150 mg/dL (70-110) H 08/17/18 06:25 Calcium 8.2 mg/dL (7.9-10.9) 08/17/18 06:25 Calcium Adj for Albumin 8.8 mg/dL (8.4-10.2) 08/17/18 06:25 0.7 mg/dL (0.0-1.1) 08/17/18 06:25 AST 13 U/L (0-48) 08/17/18 06:25 ALT 12 U/L (19-67) L 08/17/18 06:25 137 U/L (50-170) 08/17/18 06:25 6.6 gm/dL (6.2-8.2) 08/17/18 06:25 2.9 gm/dl (3.4-5.0) L 08/17/18 06:25 Amylase 18 U/L (25-115) L 08/17/18 06:25 69 U/L (73-393) L 08/17/18 06:25 Yellow 08/17/18 07:35 Clear (CLEAR) 08/17/18 07:35 7.0 pH (5.0-7.0) 08/17/18 07:35 Ur Specific [place] 1.015 SP.GR. (1.005-1.010) 08/17/18 07:35 100 mg/dL (NEGATIVE) H 08/17/18 07:35 Negative mg/dL (NEGATIVE) 08/17/18 07:35 Negative mg/dL (NEGATIVE) 08/17/18 07:35 5 /ul (NEGATIVE) H 08/17/18 07:35 Negative (NEGATIVE) 08/17/18 07:35 Negative mg/dl (NEGATIVE) 08/17/18 07:35 Prot Sulfosalicylic Acd 2+ mg/dL (0) H 08/17/18 07:35 4 EU/dl (NORMAL) H 08/17/18 07:35 Ur Leukocyte Esterase 75 /ul (NEGATIVE) H 08/17/18 07:35 None seen /hpf (0-5) 08/17/18 07:35 0-5 /hpf (0-5) 08/17/18 07:35 Ur Epithelial Cells 5-10 /hpf (0-5) H 08/17/18 07:35 1+ (NONE) H 08/17/18 07:35 Hyaline Casts 0-5 /LPF (NONE) H 08/17/18 07:35 Culture to follow 08/17/18 07:35 Blood Type O Positive 08/17/18 08:14 Antibody Screen Negative 08/17/18 08:14 Assessment/Plan - Narrative Narrative: She was given 10 mg of vitamin K IM and emergency room and 1 unit of fresh frozen plasma was ordered. Coumadin will be put on hold. We will add 3 more units of fresh frozen plasma. We will continue with breathing treatments and start her on oral antibiotic for her URI. - Assessment/Plan (1) Abdominal pain Problem: Acute (2) Rectus sheath hematoma Problem: Acute (3) Supratherapeutic INR Problem: Acute (4) Diabetes mellitus Problem: Chronic (5) Atrial fibrillation Problem: Chronic (6) CAD (coronary artery disease) Problem: Chronic (7) Hypertension Problem: Chronic (8) Hypothyroid Problem: Chronic (9) URI (upper respiratory infection) Problem: Acute Qualifiers: URI type: unspecified URI Qualified Code(s): J06.9 - Acute upper respiratory infection, unspecified
[2018-08-17] MEDS ORDERED: AZITHROMYCIN 250 MG TABLET PO ONE (11:10)
[2018-08-17] MEDS ORDERED: ALBUTEROL SULFATE/IPRATROPIUM 3 ML NEBU IH PRN (11:12)
[2018-08-17] MEDS ORDERED: MORPHINE SULFATE 10 MG/ML SYRG IV PRN (11:13)
[2018-08-17] MEDS ORDERED: POLYETHYLENE GLYCOL 3350 17 GM PACKET PO PRN (11:14)
[2018-08-17] MEDS ORDERED: hydrOXYzine HCL 25 MG TABLET PO PRN (11:14)
[2018-08-17] MEDS: GABAPENTIN 300 MG CAPSULE PO SCH ×2 (12:06→18:31)
[2018-08-17 14:13] LABS: Prothrombin Time (Patient) 25.9 Seconds (9.1-10.7)
[2018-08-17 14:14] LABS: INR 2.72 INR (0.92-1.08)
[2018-08-17 16:21] LABS: Prothrombin Time (Patient) 23.2 Seconds (9.1-10.7)
[2018-08-17 16:22] LABS: INR 2.42 INR (0.92-1.08)
[2018-08-17] MEDS ORDERED: BENZOCAINE/MENTHOL 16 EACH BOX MM PRN (19:12)
[2018-08-17] MEDS: CARVEDILOL 12.5 MG TABLET PO SCH (20:37)
[2018-08-17] MEDS: ROSUVASTATIN CALCIUM 10 MG TABLET PO SCH (20:38)
[2018-08-17] MEDS: PRAMIPEXOLE DI-HCL 0.5 MG TABLET PO SCH (20:39)
[2018-08-17] MEDS: guaiFENesin/DEXTROMETHORPHAN 118 ML BTL PO PRN (22:34)
[2018-08-17] MEDS: HYDROcodone/ACETAMINOPHEN 1 EACH TABLET PO PRN (22:36)
[2018-08-18] MEDS: GABAPENTIN 300 MG CAPSULE PO SCH ×3 (03:22→18:48)
[2018-08-18] MEDS: LEVOTHYROXINE SODIUM 150 MCG TABLET PO SCH (06:30)
[2018-08-18 07:44] LABS: Anion Gap 10.2 mmol/L (6.8-13.8); BUN/Creatinine Ratio 15.5 (9.0-21.6); Calcium * 8.6 mg/dL (7.9-10.9); Carbon Dioxide 34.5 mmol/L (24-32.6); Estimated Creat Clear 34.3; Hematocrit 34.6 % (37.0-47.0); Hemoglobin 10.7 gm/dL (12.5-16.0); Mean Cell Volume 95.3 fl (78-100); Mean Corpuscular Hemoglobin 29.5 pg (27-31); Mean Corpuscular Hgb Conc 30.9 g/dl (32-36); Mean Platelet Volume 9.1 fl (8-12.5); Neutrophil # 8.7 K/mm3 (1.3-6.0); Neutrophil % 84.6 % (42-75.0); Platelet Count 262 K/mm3 (150-450); Potassium 3.7 mmol/L (3.4-4.6); Prothrombin Time (Patient) 22.4 Seconds (9.1-10.7); Red Blood Count 3.63 M/mm3 (4.2-5.4); Red Cell Distribution Width 14.3 % (11.5-14.0); White Blood Count 10.2 K/mm3 (4.0-10.5)
[2018-08-18 07:51] LABS: INR 2.34 INR (0.92-1.08)
[2018-08-18] MEDS: CARVEDILOL 12.5 MG TABLET PO SCH ×2 (08:20→20:48)
[2018-08-18] MEDS: FUROSEMIDE 40 MG TABLET PO SCH (08:21)
[2018-08-18] MEDS: guaiFENesin/DEXTROMETHORPHAN 118 ML BTL PO PRN ×2 (08:21→16:13)
[2018-08-18] MEDS: LOSARTAN POTASSIUM 50 MG TABLET PO SCH (08:21)
[2018-08-18] MEDS: DULoxetine HCL 30 MG CAPSULE.SA PO SCH (08:21)
[2018-08-18] MEDS: DIGOXIN 0.125 MG TABLET PO SCH (08:21)
[2018-08-18] MEDS: CHOLECALCIFEROL 5,000 UNIT TABLET PO SCH (08:22)
[2018-08-18] MEDS: amLODIPine BESYLATE 5 MG TABLET PO SCH (08:22)
--- NOTE | 2018-08-18 08:56 | PN ---
Subjective - Date and Time Seen Date: 08/18/18 Time: 08:40 Subjective Narrative: Patient reports having a mild improvement in her cough. She's been having some shortness of breath for weeks. Her abdomen is particularly painful when she coughs or tries to get up. Her oxygen levels decrease to the mid 80's when she is lying down. Objective - Review of Systems Generalized/Overall Review: Denies: Fever Respiratory: Reports: Cough, Shortness of Breath Cardiac: Denies: Chest Pain, Edema Abdominal: Reports: Abdominal Pain. Denies: Nausea Genitourinary Symptoms: Reports: No Symptoms Reported - Vitals Vitals: Last Vital Signs Temp 36.4 C 08/18/18 06:10 Pulse 85 08/18/18 08:22 Resp 12 08/18/18 06:10 BP 152/84 H 08/18/18 08:22 Pulse Ox 96 08/18/18 08:24 - Abnormal Lab Findings Abnormal Lab Findings: Abnormal Lab Results 08/17/18 08/17/18 08/18/18 Range/Units 13:59 16:06 07:35 RBC 3.63 L (4.2-5.4) M/mm3 Hgb 10.7 L (12.5-16.0) gm/dL Hct 34.6 L (37.0-47.0) % MCHC 30.9 L (32-36) g/dl RDW 14.3 H (11.5-14.0) % Immature Gran % (Auto) 0.80 H (0.001-0.429) % Immature Gran # (Auto) 0.08 H (0.000-0.0310) K/mm3 Neutrophils % 84.6 H (42-75.0) % Lymphocytes % 5.0 L (20-51) % Neutrophils # 8.7 H (1.3-6.0) K/mm3 Lymphocytes # 0.51 L (1.5-3.5) k/mm3 PT 25.9 H 23.2 H (9.1-10.7) Seconds INR (Anticoag Therapy) 2.72 H 2.42 H (0.92-1.08) INR Sodium (132-142) mmol/L Plasma Sodium (130-142) mmol/L Carbon Dioxide (24-32.6) mmol/L Est GFR (Non-Af Amer) (60-130) mL/min Random Glucose (70-110) mg/dL 08/18/18 08/18/18 Range/Units 07:35 07:35 RBC (4.2-5.4) M/mm3 Hgb (12.5-16.0) gm/dL Hct (37.0-47.0) % MCHC (32-36) g/dl RDW (11.5-14.0) % Immature Gran % (Auto) (0.001-0.429) % Immature Gran # (Auto) (0.000-0.0310) K/mm3 Neutrophils % (42-75.0) % Lymphocytes % (20-51) % Neutrophils # (1.3-6.0) K/mm3 Lymphocytes # (1.5-3.5) k/mm3 PT 22.4 H (9.1-10.7) Seconds INR (Anticoag Therapy) 2.34 H (0.92-1.08) INR Sodium 145 H (132-142) mmol/L Plasma Sodium 145 H (130-142) mmol/L Carbon Dioxide 34.5 H (24-32.6) mmol/L Est GFR (Non-Af Amer) 59 L (60-130) mL/min Random Glucose 123 H (70-110) mg/dL - Exam Constitutional: Present: Alert, Oriented x3, Cooperative, No distress, Elderly Respiratory: Present: no respiratory distress, wheezing - bilateral lower lung butler, other - using oxygen, 2 L via NC Cardiovascular/Chest: Present: no edema, irregularly irregular Abdomen: Present: obese, tender - right sided, anterior, firm Extremity: Absent: lower extremity edema Eye contact: Present: good eye contact - left subconjunctival hemorrhage Assessment/Plan - Problems/Diagnosis (1) Cough Problem: Acute Narrative: Likely secondary to COPD exacerbation. She reports some improvement, but is still requiring oxygen, which she does not use at baseline. Will wean if able, but she may need temporary oxygen after discharge. She was given a dose of Rocephin in the ED, and was started on azithromycin. Continue duoneb treatments PRN. Her cough likely contributed to her RSH. Continue mucinex. (2) Rectus sheath hematoma Problem: Acute Narrative: Secondary to her cough and supratherapeutic INR. After FFP, her INR is now therapeutic at 2.34. She is otherwise hemodynamically stable, and surgical intervention not needed. Abdominal binder has been ordered, which may help with her abdominal pain with coughing. (3) Supratherapeutic INR Problem: Resolved Narrative: INR appropriate at 2.34 after FFP. Recheck in am, to ensure she is not subtherapeutic. (4) Bronchitis Problem: Acute Narrative: Continue azithromycin and duonebs. Wean oxygen as tolerated. 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 Glucose has been in low to mid 100's this admission. Continue metformin. (6) Atrial fibrillation Problem: Chronic Narrative: Patient was prescribed digoxin by previous provider. She follows with cardiology. Warfarin for anticoagulation, and was supratherapeutic, possibly due to her bronchitis. (7) Hypertension Problem: Chronic (8) Hypothyroid Problem: Chronic (9) GERD (gastroesophageal reflux disease) Problem: Chronic
[2018-08-18] MEDS: HYDROcodone/ACETAMINOPHEN 1 EACH TABLET PO PRN ×2 (16:13→23:02)
[2018-08-18] MEDS: ROSUVASTATIN CALCIUM 10 MG TABLET PO SCH (20:49)
[2018-08-18] MEDS: PRAMIPEXOLE DI-HCL 0.5 MG TABLET PO SCH (20:49)
[2018-08-19] MEDS: GABAPENTIN 300 MG CAPSULE PO SCH ×2 (03:45→11:38)
[2018-08-19] MEDS: HYDROcodone/ACETAMINOPHEN 1 EACH TABLET PO PRN ×2 (05:10→12:35)
[2018-08-19 05:37] LABS: Prothrombin Time (Patient) 13.2 Seconds (9.1-10.7)
[2018-08-19 05:42] LABS: INR 1.35 INR (0.92-1.08)
[2018-08-19] MEDS: LEVOTHYROXINE SODIUM 150 MCG TABLET PO SCH (06:49)
--- NOTE | 2018-08-19 08:34 | DS ---
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 She was found to have a 10 cm rectus sheath hematoma, and supratherapeutic INR of 6.33. She was given FFP, and her INR reduced to 1.35 on the day of discharge. She was started on a azithromycin for her cough, which improved. She was also given an abdominal binder, and prn norco for the pain from the hematoma. She was hemodynamically stable throughout her stay. Her Hgb was 12.4 on admission, and 10.7 on the day of discharge. Risks vs benefits of restarting warfarin were discussed, and she agreed to restart her previous dose on 08/20. Recommend rechecking on August 22. She did require oxygen via NC initially, and was weaned to room air 08/18. Also discussed polypharmacy, and the likelihood she is having medication interactions. She was prescribed gabapentin by a previous physician for restless leg syndrome, but does not feel like it is frequently helpful. She agreed to DC, and monitor symptoms. She did not feel like the sertraline that was recently started was helpful, and this was also DC'd. If she continues to have problems with anxiety despite cymbalta use, would recommend she establish with psychiatry. Procedures Performed: none Results and Findings: Pending Mircobiology Results 08/17/18 06:40 Blood Blood Culture - Preliminary NO GROWTH 24 HOURS 08/17/18 08:13 Blood Blood Culture - Preliminary NO GROWTH 24 HOURS Lab Pending Results 08/17/18 06:20: PT 58.4 H, INR (Anticoag Therapy) 6.33 H* 08/17/18 06:25: WBC 9.7, RBC 4.09 L, Hgb 12.1 L, Hct 38.1, MCV 93.2, MCH 29.6, MCHC 31.8 L, RDW 14.4 H, Plt Count 264, MPV 9.0, Immature Gran % (Auto) 0.30, Immature Gran # (Auto) 0.03, Neutrophils % 82.3 H, Lymphocytes % 6.2 L, Monocytes % 7.8, Eosinophils % 2.7, Basophils % 0.7, Nucleated RBC % 0.0, Neutrophils # 8.0 H, Lymphocytes # 0.60 L, Monocytes # 0.8, Eosinophils # 0.3, Absolute Basophils 0.1 08/17/18 06:25: Sodium 143 H, Plasma Sodium 144 H, Potassium 3.6, Chloride 103, Carbon Dioxide 33.0 H, Anion Gap 10.6, BUN 11, Creatinine 0.83, Est GFR (Non-Af Amer) 71, BUN/Creatinine Ratio 13.3, Random Glucose 150 H, Calcium 8.2, Calcium Adj for Albumin 8.8, Total Bilirubin 0.7, AST 13, ALT 12 L, Alkaline Phosphatase 137, Total Protein 6.6, Albumin 2.9 L, Amylase 18 L, Lipase 69 L 08/17/18 07:35: Urine Color Yellow, Urine Appearance Clear, Urine pH 7.0, Ur Specific [place] 1.015, Urine Protein 100 H, Urine Glucose (UA) Negative, Urine Ketones Negative, Urine Blood 5 H, Urine Nitrate Negative, Urine Bilirubin Negative, Prot Sulfosalicylic Acd 2+ H, Urine Urobilinogen 4 H, Ur Leukocyte Esterase 75 H, Urine RBC None seen, Urine WBC 0-5, Ur Epithelial Cells 5-10 H, Urine Bacteria 1+ H, Hyaline Casts 0-5 H, Urine Culture Comments Culture to follow 08/17/18 08:14: Blood Type O Positive, Antibody Screen Negative 08/17/18 13:59: PT 25.9 H, INR (Anticoag Therapy) 2.72 H 08/17/18 16:06: PT 23.2 H, INR (Anticoag Therapy) 2.42 H 08/18/18 07:35: WBC 10.2, RBC 3.63 L, Hgb 10.7 L, Hct 34.6 L, MCV 95.3, MCH 29.5, MCHC 30.9 L, RDW 14.3 H, Plt Count 262, MPV 9.1, Immature Gran % (Auto) 0.80 H, Immature Gran # (Auto) 0.08 H, Neutrophils % 84.6 H, Lymphocytes % 5.0 L, Monocytes % 8.6, Eosinophils % 0.6, Basophils % 0.4, Nucleated RBC % 0.0, Neutrophils # 8.7 H, Lymphocytes # 0.51 L, Monocytes # 0.9, Eosinophils # 0.1, Absolute Basophils 0.0 08/18/18 07:35: Sodium 145 H, Plasma Sodium 145 H, Potassium 3.7, Chloride 104, Carbon Dioxide 34.5 H, Anion Gap 10.2, BUN 15, Creatinine 0.97, Est GFR (Non-Af Amer) 59 L, BUN/Creatinine Ratio 15.5, Random Glucose 123 H, Calcium 8.6 08/18/18 07:35: PT 22.4 H, INR (Anticoag Therapy) 2.34 H 08/19/18 05:25: PT 13.2 H, INR (Anticoag Therapy) 1.35 H Discharge Location: Home Disposition: Home self-care Condition: Fair Discharge Activity: Activity as tolerated Discharge Diet: Resume usual diet Referrals: Ashley Blanchard DO [Primary Care Provider] - One Week Additional Patient Instructions (free text): -Please make TCM appointment unless long-term discharge. Thank you! Ana Luisa @ [phone]. Please make appointment with the coumadin clinic on August 22. Prescriptions (Any new or edited meds): guaiFENesin [Mucinex] 600 mg PO BID #20 tablet.sa HYDROcodone/ACETAMINOPHEN [[place] 5-325 Tablet] See Rx Instructions PO .COMPLEX PRN #10 tab PRN Reason: pain guaiFENesin/DEXTROMETHORPHAN [Robitussin-Dm] 10 ml PO Q4H PRN #1 btl PRN Reason: Cough Azithromycin [Zithromax] 250 mg PO DAILY #3 tab Complete Home Medications List: Complete Home Medication List: Polyethylene Glycol 3350 [Miralax] 17 gm PO DAILY PRN 06/26/12 blood-glucose meter and wrist BP monitor kit See Dose Instructions .ROUTE .MEDSUPPLY #1 ea 12/26/17 lancets 30 gauge See Dose Instructions .ROUTE .MEDSUPPLY #25 ea 12/26/17 blood pressure test kit-large cuff See Dose Instructions .ROUTE .MEDSUPPLY #1 ea 01/09/18 blood sugar diagnostic strips See Dose Instructions .ROUTE .MEDSUPPLY #100 ea 03/25/18 hydroxyzine HCl 25 mg tablet 25 mg PO BID PRN #60 tab 06/16/18 metformin 1,000 mg tablet 1,000 mg PO BID #60 tab 07/08/18 amlodipine 2.5 mg tablet 2.5 mg PO DAILY #90 tab 07/09/18 atorvastatin 10 mg tablet 10 mg PO DAILY #60 tab 07/09/18 carvedilol 12.5 mg tablet 12.5 mg PO BID #180 tab 07/09/18 duloxetine 60 mg capsule,delayed release 60 mg PO DAILY #90 cap 07/09/18 furosemide 40 mg tablet 40 mg PO DAILY #90 tab 07/09/18 losartan 50 mg tablet 50 mg PO DAILY #90 tab 07/09/18 pramipexole 0.25 mg tablet 0.25 mg PO HS #90 tab 07/09/18 warfarin 4 mg tablet 4 mg PO .COMPLEX #30 tab 07/09/18 warfarin 6 mg tablet 6 mg PO 6XW #90 tab 07/09/18 levothyroxine 150 mcg tablet 150 mcg PO DAILY tab 07/16/18 Gemfibrozil 600 mg PO BIDWM 08/17/18 Azithromycin [Zithromax] 250 mg PO DAILY #3 tab 08/19/18 Cholecalciferol [Vitamin D] 5,000 unit PO DAILY tab 08/19/18 Digoxin [Lanoxin] 0.125 mg PO DAILY tab 08/19/18 HYDROcodone/ACETAMINOPHEN [[place] 5-325 Tablet] See Rx Instructions PO .COMPLEX PRN #10 tab 08/19/18 guaiFENesin [Mucinex] 600 mg PO BID #20 tablet.sa 08/19/18 guaiFENesin/DEXTROMETHORPHAN [Robitussin-Dm] 10 ml PO Q4H PRN #1 btl 08/19/18
[2018-08-19] MEDS: DIGOXIN 0.125 MG TABLET PO SCH (08:55)
[2018-08-19] MEDS: FUROSEMIDE 40 MG TABLET PO SCH (08:57)
[2018-08-19] MEDS ORDERED: AZITHROMYCIN 250 MG TABLET PO SCH (09:00)
[2018-08-19] MEDS ORDERED: SERTRALINE HCL 25 MG PO SCH (09:00)
[2018-08-19] MEDS ORDERED: DIGOXIN 0.25 MG TABLET PO SCH (09:00)
[2018-08-19] MEDS: DULoxetine HCL 30 MG CAPSULE.SA PO SCH (09:00)
[2018-08-19] MEDS: LOSARTAN POTASSIUM 50 MG TABLET PO SCH (09:01)
[2018-08-19] MEDS: CARVEDILOL 12.5 MG TABLET PO SCH (09:02)
[2018-08-19] MEDS: amLODIPine BESYLATE 5 MG TABLET PO SCH (09:03)
[2018-08-19] MEDS: CHOLECALCIFEROL 5,000 UNIT TABLET PO SCH (09:05)
[2018-08-19 13:00] VITALS: BP 148/82
== END 2018-08-19 13:05 | disposition home or self-care (01) ==
LOC: ER 05:49 → MS 05:49
PROVIDERS: ADMIT Internal Medicine; ATTEND Family Medicine
CPT/HCPCS: 36415; 71020; 71046; 74177; 80048; 80053; 81001; 82150; 83690; 85025; 85610; 86850; 87040; 87086; 94640; 94664; 96365; 96372; 96375; 99285; G0378; Q9967

== ENCOUNTER 2018-09-16 13:27 | Observation (INO) ==
[2018-09-16] MEDS ORDERED: ALBUTEROL SULFATE/IPRATROPIUM 3 ML NEBU IH ONE (13:41)
--- NOTE | 2018-09-16 13:51 | ERNOTE ---
Dyspnea - Date Date of Service: 09/16/18 - General Presenting Symptoms: shortness of breath Time Seen by Provider: 09/16/18 13:36 Source: patient Exam Limitations: no limitations - Immun/Allergies/Home Medications Immunizations: IMMUNIZATION HX Immunizations Up to Date Yes History of Influenza Vaccine Yes Hx Pneumococcal Vaccination Yes Allergies/Adverse Reactions: Allergies No Known Allergies Allergy (Verified 09/04/18 13:55) Home Medications: HOME MEDICATIONS Polyethylene Glycol 3350 [Miralax] 17 gm PO DAILY PRN 06/26/12 [Last Taken Unknown] blood-glucose meter and wrist BP monitor kit See Dose Instructions .ROUTE .MEDSUPPLY #1 ea 12/26/17 [Last Taken Unknown] lancets 30 gauge See Dose Instructions .ROUTE .MEDSUPPLY #25 ea 12/26/17 [Last Taken Unknown] blood pressure test kit-large cuff See Dose Instructions .ROUTE .MEDSUPPLY #1 ea 01/09/18 [Last Taken Unknown] hydroxyzine HCl 25 mg tablet 25 mg PO BID PRN #60 tab 06/16/18 [Last Taken Unknown] amlodipine 2.5 mg tablet 2.5 mg PO DAILY #90 tab 07/09/18 [Last Taken Unknown] atorvastatin 10 mg tablet 10 mg PO DAILY #60 tab 07/09/18 [Last Taken Unknown] carvedilol 12.5 mg tablet 12.5 mg PO BID #180 tab 07/09/18 [Last Taken Unknown] duloxetine 60 mg capsule,delayed release 60 mg PO DAILY #90 cap 07/09/18 [Last Taken Unknown] furosemide 40 mg tablet 40 mg PO DAILY #90 tab 07/09/18 [Last Taken Unknown] losartan 50 mg tablet 50 mg PO DAILY #90 tab 07/09/18 [Last Taken Unknown] pramipexole 0.25 mg tablet 0.25 mg PO HS #90 tab 07/09/18 [Last Taken Unknown] warfarin 4 mg tablet 4 mg PO .COMPLEX #30 tab 07/09/18 [Last Taken Unknown] warfarin 6 mg tablet 6 mg PO 6XW #90 tab 07/09/18 [Last Taken Unknown] Gemfibrozil 600 mg PO BIDWM 08/17/18 [Last Taken Unknown] Cholecalciferol [Vitamin D] 5,000 unit PO DAILY tab 08/19/18 [Last Taken Unknown] Digoxin [Lanoxin] 0.125 mg PO DAILY tab 04/23/19 [Last Taken Unknown] levothyroxine 175 mcg tablet 175 mcg PO DAILY #45 tab 08/27/18 [Last Taken Unknown] blood sugar diagnostic strips See Dose Instructions .ROUTE .MEDSUPPLY #100 ea 09/08/18 [Last Taken Unknown] metformin 1,000 mg tablet 1,000 mg PO BID #60 tab 09/15/18 [Last Taken Unknown] - History of Present Illness Narrative: Patient presents to the ED for SOB today. She feels SOB all day and has noticed her BP is high. No chest pain. No fever but some cough. SOB worse with exertion. No calf pain. Taking medications as directed at home. She still has some occasionl low abd pains since the rectus sheath hematoma. Has not seen anyone else for this. 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 Denies: fever/chills, chest pain/discomfort, weakness Prior Treatment: Denies: recently seen Review of Systems - Review of Systems Constitutional: Absent: fever EYE: Present: no symptoms reported ENT: Absent: sore throat Respiratory: Present: shortness of breath, cough Cardiology: Absent: chest pain Gastrointestinal/Abdominal: Present: See HPI Genitourinary: Absent: dysuria Skin: Absent: rash Neurological: Absent: weakness All Other Systems: All systems neg except as marked Medical History (Updated 09/16/18 @ 13:51 by Isaías Escamilla MD) Anemia, iron deficiency Onset Date: Unknown Atrial fibrillation Onset Date: Unknown Diabetes Onset Date: Unknown Diverticulosis Onset Date: Unknown Hyperlipidemia Onset Date: Unknown Hypertension Onset Date: Unknown Malignant neoplasm of thyroid gland Onset Date: Unknown Obesity Onset Date: Unknown Osteoarthritis Onset Date: Unknown Osteoporosis Onset Date: Unknown Pericardial effusion Onset Date: Unknown Pleural effusion Onset Date: Unknown Reactive airway disease Onset Date: Unknown Surgical History: Surgical History (Updated 08/17/18 @ 11:01 by Micheal Hector MD) H/O arthroscopy of left knee Onset Date: ~10/12/10 Dr. Gan H/O colonoscopy Onset Date: ~2009 tubular adenoma w/high grade dysplasia. '04 hyperplastic polyp. '10 [id number] adenoma x2. 2001, 2003, 12/06/2009 History of arthroscopy of right knee Onset Date: ~10/18/06 Dr. Riggins History of cardiac cath Onset Date: ~11/28/17 History of carpal tunnel release Onset Date: ~1990 bilateral History of cataract Onset Date: ~11/28/1703/2014, 06/07/2013 History of cholecystectomy Onset Date: ~2003 History of knee replacement procedure of left knee Onset Date: ~10/03/16 Dr. Henriquez History of knee replacement procedure of right knee Onset Date: ~02/12/11 Dr. Gan History of left hip replacement Onset Date: ~06/05/05 Dr. Riggins History of skin graft Onset Date: ~11/28/17 right hand History of thyroidectomy Onset Date: ~11/28/17 S/P DOT-BSO Onset Date: ~11/28/17 Benign Tumor S/P epidural steroid injection Onset Date: ~10/07/08 L3-4 S/P trigger finger release Onset Date: 12/28/05 Gilson-left thumb Status post pericardiocentesis Onset Date: ~01/16/09 Status post tonsillectomy Onset Date: ~11/28/17 history of ear implants Onset Date: ~07/16/09 Nitinol Fluoroplastic - middle ear implant Left Thumb resection suspension arthroplasty of the carpo-me Onset Date: ~05/23/18 Dr Henriquez Family History: Family History (Updated 11/28/17 @ 07:00 by Peyman Joseph MA) Father , 70's Emphysema lung Mother , 56 Hypertension Diabetes Heart disease Brother , 70's Heart disease Brother CAD (coronary artery disease) Social History: Preferred Language Vietnamese Do you have any confucianism or No cultural preference? Smoking Status Never smoker Have you smoked in the past 12 No months Do you dip or chew tobacco No Abuse History No History of abuse Psych History Hx of Depression Alcohol Use none Drug Use none (Last Updated 09/04/18 @ 18:51 by Haroon Henriquez MD) No Social History Section defined Physical Exam - Physical Exam General Appearance: Present: alert, no apparent distress Head Exam: Present: normal inspection, no evidence of injury Eye Exam: Normal inspection: bilateral, PERRL: bilateral Ears, Nose, Throat: Present: normal ENT inspection Neck: Present: normal inspection Respiratory: Present: other - mild tachypnea, few faint crackles in the bases Cardiovascular/Chest: Present: normal peripheral pulses, irregularly irregular Gastrointestinal/Abdominal: Present: normal bowel sounds, nondistended, soft, other - mild diffuse low abdominal tendneress to plaption, the previously palpable rectus sheath hematoma is non-tender Back Exam: Absent: CVA tenderness (R), CVA tenderness (L) Extremity Exam: Present: extremity edema Neurological Exam: Present: alert, no motor/sensory deficits Skin Exam: Present: normal color, warm/dry Progress - Results and Orders Patient's Lab Results:: I have reviewed the patient's lab results. - Vital Signs Patient's Vital Signs:: I have reviewed the patient's vital signs. Vital Signs: Vital Signs 09/16/18 13:32 Temperature 36.5 C Pulse Rate 91 Respiratory Rate 29 H Blood Pressure 140/102 H O2 Sat by Pulse Oximetry 91 L - EKG EKG #1 EKG read: Interp. by me EKG Comments: A fib rate 75. Non-specific ST/T wave changes, no STEMI noted. - X-Ray X-Ray #1 X-Ray: chest Interpretation: Interp. by me X-ray Comments: I reviewed the official radiology report - Progress/Reassessment Chief Complaint: Dyspnea Progress Note-Subjective: 09/16/18 14:38 CFH exacerbation. Oxygen requirement. Hx CHF. Hasn't taken her lasix at home for a couple of days. D/W Dr Blanchard, she saw the patientin the ED and will admit the patient. Departure Clinical Impression: SOB (shortness of breath), CHF exacerbation, Hypoxia - Departure Disposition: Still a patient Condition: Fair
[2018-09-16 13:58] LABS: Hematocrit 38.8 % (37.0-47.0); Hemoglobin 12.1 gm/dL (12.5-16.0); Mean Corpuscular Hgb Conc 31.2 g/dl (32-36); Mean Platelet Volume 8.9 fl (8-12.5); Neutrophil # 5.8 K/mm3 (1.3-6.0); Platelet Count 230 K/mm3 (150-450); Red Blood Count 4.04 M/mm3 (4.2-5.4); Red Cell Distribution Width 15.7 % (11.5-14.0); White Blood Count 7.3 K/mm3 (4.0-10.5)
[2018-09-16 14:04] LABS: Prothrombin Time (Patient) 39.3 Seconds (9.1-10.7)
[2018-09-16 14:05] LABS: INR 4.19 INR (0.92-1.08)
[2018-09-16 14:14] LABS: Albumin * 3.2 gm/dl (3.4-5.0); Anion Gap 12.6 mmol/L (6.8-13.8); BUN/Creatinine Ratio 12.8 (9.0-21.6); Bilirubin, Total 0.9 mg/dL (0.0-1.1); Ca. Corrected For Albumin 9.2 mg/dL (8.4-10.2); Calcium * 8.9 mg/dL (7.9-10.9); Carbon Dioxide 27.5 mmol/L (24-32.6); Digoxin 0.5 ng/mL (0.5-2.0); Potassium 4.1 mmol/L (3.4-4.6); Troponin I 0.025 ng/mL (0.00-0.10)
[2018-09-16] MEDS ORDERED: FUROSEMIDE 10 MG/ML VIAL IV ONE (14:21)
--- NOTE | 2018-09-16 17:44 | HP ---
Chief Complaint - Chief Complaint Date of Service: 09/16/18 Time of Service: 14:30 Chief Complaint: shortness of breath History of Present Illness: Patient with past medical history of A. kathleen on digoxin and warfarin, hypertension, diabetes, coronary artery disease, CHF went to her Coumadin clinic appointment today and is complaining of shortness of breath, so was brought to the ED. She reports not taking her Lasix for the last few days because she does not like to take it when she goes out in the community. She had signs of fluid overload on chest x-ray, and lower extremity swelling. She denies chest pain. She was hospitalized last month after having a cough and was found to have a rectus sheath hematoma. She still has some lower abdominal discomfort from this, but her cough has improved. Her daughter also reports she is having significant difficulty with insomnia. She has difficulty sleeping every night. She is unable to stay asleep for more than short periods of time. Darlene reports sometimes feeling tired during the day . Her gabapentin had been held, because they did not feel like it was helping for her restless leg syndrome, but this has been restarted. Her daughter also reports insufficient p.o. intake because her appetite has been decreased. No other medication changes lately. Medical History (Updated 09/16/18 @ 17:44 by Ashley Blanchard DO) Anemia, iron deficiency Onset Date: Unknown Atrial fibrillation Onset Date: Unknown Diabetes Onset Date: Unknown Diverticulosis Onset Date: Unknown Hyperlipidemia Onset Date: Unknown Hypertension Onset Date: Unknown Malignant neoplasm of thyroid gland Onset Date: Unknown Obesity Onset Date: Unknown Osteoarthritis Onset Date: Unknown Osteoporosis Onset Date: Unknown Pericardial effusion Onset Date: Unknown Pleural effusion Onset Date: Unknown Reactive airway disease Onset Date: Unknown Surgical History: Surgical History (Updated 08/17/18 @ 11:01 by Micheal Hector MD) H/O arthroscopy of left knee Onset Date: ~10/12/10 Dr. Gan H/O colonoscopy Onset Date: ~2009 '02 tubular adenoma w/high grade dysplasia. '04 hyperplastic polyp. '10 [id number] adenoma x2. 2001, 2003, 12/06/2009 History of arthroscopy of right knee Onset Date: ~10/18/06 Dr. Riggins History of cardiac cath Onset Date: ~11/28/17 History of carpal tunnel release Onset Date: ~1990 bilateral History of cataract Onset Date: ~11/28/1703/2014, 06/07/2013 History of cholecystectomy Onset Date: ~2003 History of knee replacement procedure of left knee Onset Date: ~10/03/16 Dr. Henriquez History of knee replacement procedure of right knee Onset Date: ~02/12/11 Dr. Gan History of left hip replacement Onset Date: ~06/05/05 Dr. Riggins History of skin graft Onset Date: ~11/28/17 right hand History of thyroidectomy Onset Date: ~11/28/17 S/P DOT-BSO Onset Date: ~11/28/17 Benign Tumor S/P epidural steroid injection Onset Date: ~10/07/08 L3-4 S/P trigger finger release Onset Date: 12/28/05 Gilson-left thumb Status post pericardiocentesis Onset Date: ~01/16/09 Status post tonsillectomy Onset Date: ~11/28/17 history of ear implants Onset Date: ~07/16/09 Nitinol Fluoroplastic - middle ear implant Left Thumb resection suspension arthroplasty of the carpo-me Onset Date: ~05/23/18 Dr Henriquez Family History: Family History (Updated 11/28/17 @ 07:00 by Peyman Joseph MA) Father , 70's Emphysema lung Mother , 56 Hypertension Diabetes Heart disease Brother , 70's Heart disease Brother CAD (coronary artery disease) Social History: Patient Lives/Resources Aide Utilized Occupation retired Preferred Language Croatian Do you have any baptist or No cultural preference? Smoking Status Never smoker Have you smoked in the past 12 No months Do you dip or chew tobacco No Abuse History No History of abuse Psych History Hx of Depression Alcohol Use none Drug Use none (Last Updated 09/04/18 @ 18:51 by Haroon Henriquez MD) No Social History Section defined Review Of Systems (GEN) - Review of Systems Generalized/Overall Review: Present: Weakness. Absent: Fever Respiratory: Present: Shortness of Breath, Wheezing. Absent: Cough Cardiac: Present: Edema. Absent: Chest Pain Abdominal: Absent: Nausea Genitourinary: Present: No Symptoms Reported Neurological: Present: Anxiety Immunizations: IMMUNIZATION HX Immunizations Up to Date Yes History of Influenza Vaccine Yes Hx Pneumococcal Vaccination Yes Allergies/Adverse Reactions: Allergies Allergy/AdvReac Type Severity Reaction Status Date / Time No Known Allergies Allergy Verified 09/16/18 15:28 Home Medications: HOME MEDICATIONS Polyethylene Glycol 3350 [Miralax] 17 gm PO DAILY PRN 06/26/12 [Last Taken 09/16/18] blood-glucose meter and wrist BP monitor kit See Dose Instructions .ROUTE .MEDSUPPLY #1 ea 12/26/17 [Last Taken Unknown] lancets 30 gauge See Dose Instructions .ROUTE .MEDSUPPLY #25 ea 12/26/17 [Last Taken Unknown] blood pressure test kit-large cuff See Dose Instructions .ROUTE .MEDSUPPLY #1 ea 01/09/18 [Last Taken Unknown] hydroxyzine HCl 25 mg tablet 25 mg PO BID PRN #60 tab 06/16/18 [Last Taken 09/16/18] amlodipine 2.5 mg tablet 2.5 mg PO DAILY #90 tab 07/09/18 [Last Taken 09/16/18] atorvastatin 10 mg tablet 10 mg PO DAILY #60 tab 07/09/18 [Last Taken 09/16/18] carvedilol 12.5 mg tablet 12.5 mg PO BID #180 tab 07/09/18 [Last Taken 09/16/18] duloxetine 60 mg capsule,delayed release 60 mg PO DAILY #90 cap 07/09/18 [Last Taken 09/16/18] furosemide 40 mg tablet 40 mg PO DAILY #90 tab 07/09/18 [Last Taken Unknown] losartan 50 mg tablet 50 mg PO DAILY #90 tab 07/09/18 [Last Taken 09/16/18] pramipexole 0.25 mg tablet 0.25 mg PO HS #90 tab 07/09/18 [Last Taken Unknown] Gemfibrozil 600 mg PO BIDWM 08/17/18 [Last Taken 09/16/18] Cholecalciferol [Vitamin D] 5,000 unit PO DAILY tab 08/19/18 [Last Taken 09/16/18] Digoxin [Lanoxin] 0.125 mg PO DAILY tab 08/19/18 [Last Taken 09/16/18] levothyroxine 175 mcg tablet 175 mcg PO DAILY #45 tab 08/27/18 [Last Taken 09/16/18] blood sugar diagnostic strips See Dose Instructions .ROUTE .MEDSUPPLY #100 ea 09/08/18 [Last Taken Unknown] metformin 1,000 mg tablet 1,000 mg PO BID #60 tab 09/15/18 [Last Taken 09/16/18] Warfarin Sodium 4 mg PO DAILY 09/16/18 [Last Taken Unknown] Warfarin Sodium [Coumadin] 6 mg PO DAILY 09/16/18 [Last Taken Unknown] Exam - Exam Vital Signs: Vital Signs - Last Taken Temp 36.6 C 09/16/18 15:05 Pulse 90 09/16/18 15:33 Resp 18 09/16/18 15:05 BP 178/99 H 09/16/18 15:05 Pulse Ox 96 09/16/18 15:05 Constitutional: Present: Alert, Oriented x3, Cooperative, Elderly Respiratory: Present: decreased breath sounds - in bases, other - wearing O2 via NC Cardiovascular/Chest: Present: irregularly irregular Abdomen: Present: soft, tender - bilateral lower Extremity: Present: lower extremity edema - 2+ bilaterally almost to the knee Eye contact: Present: cooperative, good eye contact Diagnostic Studies: Abnormal Lab Results 09/16/18 09/16/18 09/16/18 Range/Units 13:48 13:48 13:48 RBC 4.04 L (4.2-5.4) M/mm3 Hgb 12.1 L (12.5-16.0) gm/dL MCHC 31.2 L (32-36) g/dl RDW 15.7 H (11.5-14.0) % Immature Gran % (Auto) 0.70 H (0.001-0.429) % Immature Gran # (Auto) 0.05 H (0.000-0.0310) K/mm3 Neutrophils % 79.0 H (42-75.0) % Lymphocytes % 7.2 L (20-51) % Eosinophils % 4.6 H (0.0-3.0) % Lymphocytes # 0.53 L (1.5-3.5) k/mm3 PT 39.3 H (9.1-10.7) Seconds INR (Anticoag Therapy) 4.19 H* (0.92-1.08) INR pO2 (83.0-108.0) mmHg Total CO2 (19.0-24.0) mmol/L ABG O2 Sat (Measured) (94.0-98.0) % Random Glucose 125 H (70-110) mg/dL B-Natriuretic Peptide 2515 H (5-550) pg/mL Albumin 3.2 L (3.4-5.0) gm/dl 09/16/18 Range/Units 13:48 RBC (4.2-5.4) M/mm3 Hgb (12.5-16.0) gm/dL MCHC (32-36) g/dl RDW (11.5-14.0) % Immature Gran % (Auto) (0.001-0.429) % Immature Gran # (Auto) (0.000-0.0310) K/mm3 Neutrophils % (42-75.0) % Lymphocytes % (20-51) % Eosinophils % (0.0-3.0) % Lymphocytes # (1.5-3.5) k/mm3 PT (9.1-10.7) Seconds INR (Anticoag Therapy) (0.92-1.08) INR pO2 51.3 L (83.0-108.0) mmHg Total CO2 24.2 H (19.0-24.0) mmol/L ABG O2 Sat (Measured) 87.6 L (94.0-98.0) % Random Glucose (70-110) mg/dL B-Natriuretic Peptide (5-550) pg/mL Albumin (3.4-5.0) gm/dl Laboratory Results WBC 7.3 K/mm3 (4.0-10.5) 09/16/18 13:48 RBC 4.04 M/mm3 (4.2-5.4) L 09/16/18 13:48 Hgb 12.1 gm/dL (12.5-16.0) L 09/16/18 13:48 Hct 38.8 % (37.0-47.0) 09/16/18 13:48 MCV 96.0 fl (78-100) 09/16/18 13:48 MCH 30.0 pg (27-31) 09/16/18 13:48 MCHC 31.2 g/dl (32-36) L 09/16/18 13:48 RDW 15.7 % (11.5-14.0) H 09/16/18 13:48 Plt Count 230 K/mm3 (150-450) 09/16/18 13:48 MPV 8.9 fl (8-12.5) 09/16/18 13:48 Immature Gran % (Auto) 0.70 % (0.001-0.429) H 09/16/18 13:48 Immature Gran # (Auto) 0.05 K/mm3 (0.000-0.0310) H 09/16/18 13:48 79.0 % (42-75.0) H 09/16/18 13:48 7.2 % (20-51) L 09/16/18 13:48 7.7 % (0.0-9) 09/16/18 13:48 4.6 % (0.0-3.0) H 09/16/18 13:48 0.8 % (0.0-1.0) 09/16/18 13:48 Nucleated RBC % 0.0 k/mm3 (0-1) 09/16/18 13:48 5.8 K/mm3 (1.3-6.0) 09/16/18 13:48 0.53 k/mm3 (1.5-3.5) L 09/16/18 13:48 0.6 k/mm3 (0.0-1.0) 09/16/18 13:48 0.3 k/mm3 (0.0-0.7) 09/16/18 13:48 Absolute Basophils 0.1 k/mm3 (0.0-0.1) 09/16/18 13:48 PT 39.3 Seconds (9.1-10.7) H 09/16/18 13:48 INR (Anticoag Therapy) 4.19 INR (0.92-1.08) H* 09/16/18 13:48 pCO2 35.6 mmHg (32.0-45.0) 09/16/18 13:48 pO2 51.3 mmHg (83.0-108.0) L 09/16/18 13:48 HCO3 23.1 mmol/L (21.0-28.0) 09/16/18 13:48 Total CO2 24.2 mmol/L (19.0-24.0) H 09/16/18 13:48 Base Excess -0.8 mmol/L (-2.0-3.0) 09/16/18 13:48 ABG pH 7.43 (7.35-7.45) 09/16/18 13:48 ABG O2 Sat (Measured) 87.6 % (94.0-98.0) L 09/16/18 13:48 Sodium 140 mmol/L (132-142) 09/16/18 13:48 140 mmol/L (130-142) 09/16/18 13:48 Potassium 4.1 mmol/L (3.4-4.6) 09/16/18 13:48 Chloride 104 mmol/L (97-106) 09/16/18 13:48 Carbon Dioxide 27.5 mmol/L (24-32.6) 09/16/18 13:48 12.6 mmol/L (6.8-13.8) 09/16/18 13:48 BUN 12 mg/dL (3-23) 09/16/18 13:48 0.94 mg/dL (0.4-1.4) 09/16/18 13:48 Est GFR (Non-Af Amer) 61 mL/min (60-130) 09/16/18 13:48 12.8 (9.0-21.6) 09/16/18 13:48 125 mg/dL (70-110) H 09/16/18 13:48 Calcium 8.9 mg/dL (7.9-10.9) 09/16/18 13:48 Calcium Adj for Albumin 9.2 mg/dL (8.4-10.2) 09/16/18 13:48 0.9 mg/dL (0.0-1.1) 09/16/18 13:48 AST 15 U/L (0-48) 09/16/18 13:48 ALT 19 U/L (19-67) 09/16/18 13:48 137 U/L (50-170) 09/16/18 13:48 0.025 ng/mL (0.00-0.10) 09/16/18 13:48 B-Natriuretic Peptide 2515 pg/mL (5-550) H 09/16/18 13:48 7.0 gm/dL (6.2-8.2) 09/16/18 13:48 3.2 gm/dl (3.4-5.0) L 09/16/18 13:48 Digoxin 0.5 ng/mL (0.5-2.0) 09/16/18 13:48 Assessment/Plan - Assessment/Plan (1) CHF exacerbation Assessment: 40 mg IV Lasix administered in the ED. Will reassess in the morning, and potentially repeat. She is currently requiring oxygen, which she does not normally need. No signs of pneumonia on physical exam, and WBC is not elevated. BNP high at 2515. Her daughter reports that Dr. Malin, her ethics manager, wanted an echocardiogram prior to seeing her in October. We will order this as an outpatient after DC. Problem: Acute (2) Supratherapeutic INR Assessment: INR is high at 4.19 earlier today. Per her anticoagulation note, she will be holding 2 doses, then decreasing her dose by 10% (6 mg MWF, 4 mg the rest of the week), and recheck on 09/25. Problem: Resolved (3) Atrial fibrillation Assessment: She is prescribed digoxin and warfarin by Dr. Harrison, her ethics manager. I do not routinely prescribe digoxin, and have consulted internal medicine for their input regarding her polypharmacy. Problem: Chronic (4) Diabetes mellitus Problem: Chronic Qualifiers: (5) Hypertension Problem: Chronic (6) CAD (coronary artery disease) Problem: Chronic (7) Hypothyroid Problem: Chronic (8) GERD (gastroesophageal reflux disease) Problem: Chronic (9) Insomnia Problem: Acute
[2018-09-16] MEDS ORDERED: hydrOXYzine HCL 25 MG TABLET PO PRN (17:48)
[2018-09-16] MEDS ORDERED: POLYETHYLENE GLYCOL 3350 17 GM PACKET PO PRN (17:48)
[2018-09-16] MEDS: DIGOXIN 0.125 MG TABLET PO SCH (18:22)
[2018-09-16] MEDS: amLODIPine BESYLATE 5 MG TABLET PO SCH (18:22)
[2018-09-16] MEDS: ACETAMINOPHEN 325 MG TABLET PO PRN (18:35)
[2018-09-16] MEDS: CARVEDILOL 12.5 MG TABLET PO SCH (20:08)
[2018-09-16] MEDS ORDERED: PRAMIPEXOLE DI-HCL 0.5 MG TABLET PO SCH (21:00)
[2018-09-16] MEDS ORDERED: ROSUVASTATIN CALCIUM 10 MG TABLET PO SCH (21:00)
[2018-09-17] MEDS ORDERED: LEVOTHYROXINE SODIUM 175 MCG TABLET PO SCH (07:00)
[2018-09-17] MEDS: ACETAMINOPHEN 325 MG TABLET PO PRN (07:20)
[2018-09-17] MEDS: amLODIPine BESYLATE 5 MG TABLET PO SCH (08:43)
[2018-09-17] MEDS: DIGOXIN 0.125 MG TABLET PO SCH (08:43)
[2018-09-17] MEDS: CARVEDILOL 12.5 MG TABLET PO SCH (08:44)
[2018-09-17] MEDS ORDERED: FUROSEMIDE 40 MG TABLET PO SCH (09:00)
[2018-09-17] MEDS ORDERED: DULoxetine HCL 30 MG CAPSULE.SA PO SCH (09:00)
[2018-09-17] MEDS ORDERED: amLODIPine BESYLATE 5 MG TABLET PO SCH (09:00)
[2018-09-17] MEDS ORDERED: LOSARTAN POTASSIUM 50 MG TABLET PO SCH (09:00)
[2018-09-17] MEDS ORDERED: FUROSEMIDE 10 MG/ML VIAL IV ONE (09:12)
--- NOTE | 2018-09-17 09:46 | DS ---
(1) CHF exacerbation Problem: Resolved (2) Supratherapeutic INR Problem: Resolved (3) Atrial fibrillation Problem: Chronic (4) Diabetes mellitus Problem: Chronic Qualifiers: (5) Hypertension Problem: Chronic (6) CAD (coronary artery disease) Problem: Chronic (7) Hypothyroid Problem: Chronic (8) GERD (gastroesophageal reflux disease) Problem: Chronic (9) Insomnia Problem: Chronic Description of Stay: Patient with past medical history of A. fib on digoxin and warfarin, hypertension, diabetes, coronary artery disease, CHF went to her Coumadin clinic appointment today and is complaining of shortness of breath, so was brought to the ED. She reports not taking her Lasix for the last few days because she does not like to take it when she goes out in the community. She had signs of fluid overload on chest x-ray, and lower extremity swelling. She denies chest pain. She was given 40 mg IV lasix, and had improvement in her swelling and SOB the next morning, and was weaned off oxygen. She lost 10 pounds overnight, and still had 1+ swelling the next morning, so an extra 20 mg dose of IV lasix was given. She was interested in switching to eliquis so she doesn't have to have her coumadin levels checked. The cost would have been $160 per month, so she'd like to keep taking the coumadin. She continues to have problems with insomnia. Hydroxyzine dose increased to 50 mg. Again suggested establishing with psychiatry for help managing anxiety, depression, and insomnia. Procedures Performed: none Results and Findings: Lab Pending Results 09/16/18 13:48: WBC 7.3, RBC 4.04 L, Hgb 12.1 L, Hct 38.8, MCV 96.0, MCH 30.0, MCHC 31.2 L, RDW 15.7 H, Plt Count 230, MPV 8.9, Immature Gran % (Auto) 0.70 H, Immature Gran # (Auto) 0.05 H, Neutrophils % 79.0 H, Lymphocytes % 7.2 L, Monocytes % 7.7, Eosinophils % 4.6 H, Basophils % 0.8, Nucleated RBC % 0.0, Neutrophils # 5.8, Lymphocytes # 0.53 L, Monocytes # 0.6, Eosinophils # 0.3, Absolute Basophils 0.1 09/16/18 13:48: Sodium 140, Plasma Sodium 140, Potassium 4.1, Chloride 104, Carbon Dioxide 27.5, Anion Gap 12.6, BUN 12, Creatinine 0.94, Est GFR (Non-Af Amer) 61, BUN/Creatinine Ratio 12.8, Random Glucose 125 H, Calcium 8.9, Calcium Adj for Albumin 9.2, Total Bilirubin 0.9, AST 15, ALT 19, Alkaline Phosphatase 137, Troponin I 0.025, B-Natriuretic Peptide 2515 H, Total Protein 7.0, Albumin 3.2 L, Digoxin 0.5 09/16/18 13:48: PT 39.3 H, INR (Anticoag Therapy) 4.19 H* 09/16/18 13:48: pCO2 35.6, pO2 51.3 L, HCO3 23.1, Total CO2 24.2 H, Base Excess -0.8, ABG pH 7.43, ABG O2 Sat (Measured) 87.6 L Discharge Location: Home Disposition: Home self-care Condition: Fair Discharge Activity: Activity as tolerated Discharge Diet: Low salt Referrals: Ashley Blanchard DO [Primary Care Provider] - (Previously scheduled appt on September 25) Prescriptions (Any new or edited meds): hydrOXYzine HCL [Atarax] 50 mg PO BID PRN #60 tab PRN Reason: anxiety amLODIPine BESYLATE [Norvasc] 5 mg PO DAILY #30 tab Complete Home Medications List: Complete Home Medication List: Polyethylene Glycol 3350 [Miralax] 17 gm PO DAILY PRN 06/26/12 blood-glucose meter and wrist BP monitor kit See Dose Instructions .ROUTE .MEDSUPPLY #1 ea 12/26/17 lancets 30 gauge See Dose Instructions .ROUTE .MEDSUPPLY #25 ea 12/26/17 blood pressure test kit-large cuff See Dose Instructions .ROUTE .MEDSUPPLY #1 ea 01/09/18 atorvastatin 10 mg tablet 10 mg PO DAILY #60 tab 07/09/18 carvedilol 12.5 mg tablet 12.5 mg PO BID #180 tab 07/09/18 duloxetine 60 mg capsule,delayed release 60 mg PO DAILY #90 cap 07/09/18 furosemide 40 mg tablet 40 mg PO DAILY #90 tab 07/09/18 losartan 50 mg tablet 50 mg PO DAILY #90 tab 07/09/18 pramipexole 0.25 mg tablet 0.25 mg PO HS #90 tab 07/09/18 Gemfibrozil 600 mg PO BIDWM 08/17/18 Cholecalciferol [Vitamin D] 5,000 unit PO DAILY tab 08/19/18 Digoxin [Lanoxin] 0.125 mg PO DAILY tab 08/19/18 levothyroxine 175 mcg tablet 175 mcg PO DAILY #45 tab 08/27/18 blood sugar diagnostic strips See Dose Instructions .ROUTE .MEDSUPPLY #100 ea 09/08/18 metformin 1,000 mg tablet 1,000 mg PO BID #60 tab 09/15/18 Warfarin Sodium 4 mg PO DAILY 09/16/18 Warfarin Sodium [Coumadin] 6 mg PO DAILY 09/16/18 amLODIPine BESYLATE [Norvasc] 5 mg PO DAILY #30 tab 09/17/18 hydrOXYzine HCL [Atarax] 50 mg PO BID PRN #60 tab 09/17/18 Amb Orders for Discharge: Digoxin Time Frame: 2 Weeks, Location: Laboratory US Echocardiogram Complete * Time Frame: 2 Weeks, Location: Radiology
--- NOTE | 2018-09-17 11:42 | CONS ---
[facility] - General Date of Service: 09/17/18 Narrative: 78-year-old female with a past medical history of atrial fibrillation on digoxin and warfarin, CHF on Lasix, diabetes, hypertension, coronary artery disease presents with complaints of shortness of breath. She had not been taking her Lasix for several days. Chest x-ray showed bilateral pleural effusions with basilar consolidation representing mild atelectasis. BNP was 2515. She was started on IV Lasix. She complains of trouble sleeping, decreased appetite and had a recent rectus sheath hematoma about 1 month ago. Consult was placed for evaluation of polypharmacy. - History of Present Illness Allergies/Adverse Reactions: Allergies No Known Allergies Allergy (Verified 09/16/18 15:28) Home Medications: Home Medications Medication Instructions Recorded Last Taken Polyethylene Glycol 3350 [Miralax] 17 gm PO DAILY PRN 06/26/12 09/16/18 blood-glucose meter and wrist BP See Dose Instructions .ROUTE 12/26/17 Unknown monitor kit .MEDSUPPLY #1 ea lancets 30 gauge See Dose Instructions .ROUTE 12/26/17 Unknown .MEDSUPPLY #25 ea blood pressure test kit-large cuff See Dose Instructions .ROUTE 01/09/18 Unknown .MEDSUPPLY #1 ea atorvastatin 10 mg tablet 10 mg PO DAILY #60 tab 07/09/18 09/16/18 carvedilol 12.5 mg tablet 12.5 mg PO BID #180 tab 07/09/18 09/16/18 duloxetine 60 mg capsule,delayed 60 mg PO DAILY #90 cap 07/09/18 09/16/18 release furosemide 40 mg tablet 40 mg PO DAILY #90 tab 07/09/18 Unknown losartan 50 mg tablet 50 mg PO DAILY #90 tab 07/09/18 09/16/18 pramipexole 0.25 mg tablet 0.25 mg PO HS #90 tab 07/09/18 Unknown Gemfibrozil 600 mg PO BIDWM 08/17/18 09/16/18 Cholecalciferol [Vitamin D] 5,000 unit PO DAILY tab 08/19/18 09/16/18 Digoxin [Lanoxin] 0.125 mg PO DAILY tab 08/19/18 09/16/18 levothyroxine 175 mcg tablet 175 mcg PO DAILY #45 tab 08/27/18 09/16/18 blood sugar diagnostic strips See Dose Instructions .ROUTE 09/08/18 Unknown .MEDSUPPLY #100 ea metformin 1,000 mg tablet 1,000 mg PO BID #60 tab 09/15/18 09/16/18 Warfarin Sodium 4 mg PO DAILY 09/16/18 Unknown Warfarin Sodium [Coumadin] 6 mg PO DAILY 09/16/18 Unknown amLODIPine BESYLATE [Norvasc] 5 mg PO DAILY #30 tab 09/17/18 Unknown hydrOXYzine HCL [Atarax] 50 mg PO BID PRN #60 tab 09/17/18 Unknown Procedures Contrast arthrogram (02/08/05) Excision of semilunar cartilage of knee (10/12/10) Exploration of tendon sheath of hand (12/28/05) Injection of anesthetic into spinal canal for analgesia (10/07/08) Injection of other agent into spinal canal (10/07/08) Injection of steroid (10/07/08) Other repair of knee (10/12/10) Replacement of Left Knee Joint with Synthetic Substitute, Cemented, Open Approach (10/03/16) Synovectomy, knee (10/12/10) THORACENTESIS (03/21/09) Total hip replacement (06/05/05) Total knee replacement (02/12/11) Medications - Medications Current Medications: Current Medications Acetaminophen (Tylenol) 650 mg PO Q6H PRN PRN Reason: Mild pain (pain scale 1-3) Stop: 10/16/18 18:32 Last Admin: 09/17/18 07:20 Dose: 650 mg Documented by: Amlodipine Besylate (Norvasc) 5 mg PO DAILY [facility] Stop: 10/17/18 09:01 Last Admin: 09/17/18 10:06 Dose: 2.5 mg Documented by: Carvedilol (Coreg) 12.5 mg PO BID [facility] Stop: 10/16/18 21:01 Last Admin: 09/17/18 08:44 Dose: 12.5 mg Documented by: Digoxin (Lanoxin) 0.125 mg PO DAILY [facility] Stop: 10/16/18 18:01 Last Admin: 09/17/18 08:43 Dose: 0.125 mg Documented by: Duloxetine HCl (Cymbalta) 60 mg PO DAILY [facility] Stop: 10/17/18 09:01 Last Admin: 09/17/18 08:44 Dose: 60 mg Documented by: Furosemide (Lasix) 40 mg PO DAILY [facility] Stop: 10/17/18 09:01 Last Admin: 09/17/18 08:44 Dose: 40 mg Documented by: Levothyroxine Sodium (Synthroid) 175 mcg PO DAILY@0700 [facility] Stop: 10/17/18 07:01 Last Admin: 09/17/18 07:20 Dose: 175 mcg Documented by: Losartan Potassium (Cozaar) 50 mg PO DAILY [facility] Stop: 10/17/18 09:01 Last Admin: 09/17/18 08:44 Dose: 50 mg Documented by: Metformin HCl (Glucophage) 1,000 mg PO BIDWM [facility] Stop: 10/16/18 18:01 Last Admin: 09/17/18 08:44 Dose: 1,000 mg Documented by: Pramipexole Dihydrochloride (Mirapex) 0.25 mg PO HS [facility] Stop: 10/16/18 21:01 Last Admin: 09/16/18 20:08 Dose: 0.25 mg Documented by: Rosuvastatin Calcium (Crestor) 5 mg PO [facility] Stop: 10/16/18 21:01 Last Admin: 09/16/18 20:09 Dose: 5 mg Documented by: Review of Systems - Review of Systems Generalized/Overall Review: Absent: Fever Respiratory: Present: Cough, Shortness of Breath Cardiac: Absent: Chest Pain Abdominal: Present: Abdominal Pain Misc: All systems neg except as marked Physical Examination - Exam Vital Signs: Vital Signs - Last Taken Temp 37 C 09/17/18 09:00 Pulse 90 09/17/18 10:06 Resp 18 09/17/18 09:00 BP 178/98 H 09/17/18 10:06 Pulse Ox 94 09/17/18 09:00 O2 Oxygen Delivery Method Room Air Constitutional: Present: Alert, Cooperative, Well developed, Elderly Neck: Present: non-tender, supple, trachea midline Respiratory: Present: chest non-tender, lungs clear, normal breath sounds, No wheezing. Absent: crackles, rhonchi Cardiovascular/Chest: Present: normal peripheral pulses, regular rate, rhythm, edema Peripheral Pulses: dorsalis-pedis (R): 1+, dorsalis-pedis (L): 1+ Abdomen: Present: Normal bowel sounds, soft, nontender Extremity: Present: pedal edema - 1+ bilateral Skin Exam: Present: normal color, warm/dry Neurologic: Present: alert, normal mood/affect Appearance: Present: appropriate appearance Eye contact: Present: cooperative Thoughts: Present: normal mood /affect - Results and Findings: Lab/Microbiology results last 24 hrs: Abnormal/Pending Laboratory Last 24 HRS 09/16/18 09/16/18 09/16/18 13:48 13:48 13:48 RBC Hgb MCHC RDW Immature Gran % (Auto) Immature Gran # (Auto) Neutrophils % Lymphocytes % Eosinophils % Lymphocytes # PT 39.3 H INR (Anticoag Therapy) 4.19 H* pO2 51.3 L Total CO2 24.2 H ABG O2 Sat (Measured) 87.6 L Random Glucose 125 H B-Natriuretic Peptide 2515 H Albumin 3.2 L 09/16/18 13:48 RBC 4.04 L Hgb 12.1 L MCHC 31.2 L RDW 15.7 H Immature Gran % (Auto) 0.70 H Immature Gran # (Auto) 0.05 H Neutrophils % 79.0 H Lymphocytes % 7.2 L Eosinophils % 4.6 H Lymphocytes # 0.53 L PT INR (Anticoag Therapy) pO2 Total CO2 ABG O2 Sat (Measured) Random Glucose B-Natriuretic Peptide Albumin - Assessments/Findings (1) Polypharmacy Diagnosis(s): Patient's medication list has been reviewed. Duloxetine may be contributing to her symptoms of insomnia and fatigue. Pramipexole may cause insomnia. These medications may be contributing to her symptoms. Consider risks versus benefits of possibly discontinuing these medications. I would continue monitoring her thyroid function as Dr. Blnachard has been doing on the outpatient side because her TSH was elevated since June 2018. This may be contributing to her feelings of fatigue. Consider melatonin for sleep. Problem: Chronic (2) Supratherapeutic INR Diagnosis(s): Continue care per Dr. Blanchard. Problem: Resolved (3) CHF exacerbation Diagnosis(s): Continue care per Dr. Blanchard. Problem: Resolved (4) Atrial fibrillation Diagnosis(s): Continue care per Dr. Blanchard. Problem: Chronic (5) Hypertension Diagnosis(s): Continue care per Dr. Blanchard. Problem: Chronic Qualifiers: Hypertension type: essential hypertension Qualified Code(s): I10 - Essential (primary) hypertension
[2018-09-17 14:45] VITALS: BP 140/72
== END 2018-09-17 13:00 | disposition home or self-care (01) ==
LOC: MS 13:27 → ER 13:27 → MS 15:00
PROVIDERS: ADMIT Family Medicine; ATTEND Family Medicine
DX: E11.9 Type 2 diabetes mellitus without complications; I50.9 Heart failure, unspecified; I25.10 Atherosclerotic heart disease of native coronary artery without angina pectoris; I48.2 Chronic atrial fibrillation; E03.9 Hypothyroidism, unspecified; G47.00 Insomnia, unspecified; I10 Essential (primary) hypertension; K21.9 Gastro-esophageal reflux disease without esophagitis
CPT/HCPCS: 36415; 36600; 71020; 71046; 80053; 80162; 82803; 83519; 83880; 84484; 85025; 85610; 93005; 94640; 94664; 96374; 96375; 99285; G0378